=== PATIENT | female | born 1960 | race Caucasian/White ===

== ENCOUNTER 2018-03-11 16:11 | Inpatient (IN) | payer OTHER ==
[2018-03-11 17:34] LABS: Basophils # (Auto) 0.1 K/mm3 (0.0-0.1); Basophils % (Auto) 1.4 % (0.0-1.8); Eosinophils # (Auto) 0.1 K/mm3 (0.0-0.4); Eosinophils % (Auto) 1.7 % (0.0-4.3); Hematocrit 24.8 % (30.3-42.9); Hemoglobin 8.5 gm/dl (10.1-14.3); Lymphocytes # (Auto) 0.9 K/mm3 (1.2-5.4); Lymphocytes % (Auto) 14.8 % (13.4-35.0); Mean Corpuscular HGB Conc 34 % (30-34); Mean Corpuscular Hemoglobin 31 pg (28-32); Mean Corpuscular Volume 90 fl (79-97); Monocytes # (Auto) 0.6 K/mm3 (0.0-0.8); Monocytes % (Auto) 9.1 % (0.0-7.3); Platelet Count 219 K/mm3 (140-440); Red Blood Count 2.75 M/mm3 (3.65-5.03); Red Cell Distribution Width 16.1 % (13.2-15.2)
[2018-03-11 18:01] LABS: Calcium 8.8 mg/dL (8.4-10.2)
--- NOTE | 2018-03-11 18:14 | XRay Report ---
FINAL REPORT PROCEDURE: XR CHEST ROUTINE 2V TECHNIQUE: PA and lateral chest radiographs were obtained. CPT 54041 HISTORY: sob COMPARISON: No prior studies are available for comparison. FINDINGS: The heart is markedly diffusely enlarged. Pulmonary vasculature is mildly distended. Interstitial markings mildly coarsened. This may be chronic. I cannot exclude minimal pulmonary edema. No effusions are identified. There is some patchy alveolar density in the right infrahilar region extending into the right lower lobe suggesting a small area of atelectasis. Subsegmental infiltrate needs clinical exclusion. IMPRESSION: Cardiomegaly with pulmonary venous hypertension changes. Mild prominence interstitial markings may represent chronic minimal fibrosis. I cannot exclude mild pulmonary edema. Small amount of patchy alveolar density right infrahilar region extending into the right lower lobe suggesting atelectasis versus a subsegmental infiltrate. No other abnormalities are seen..
[2018-03-11 18:54] LABS: Chol/HDL Ratio 3.49 %
--- NOTE | 2018-03-11 21:52 | Emergency Department Report ---
ED Shortness of Breath HPI - General Chief Complaint: Dyspnea/Respdistress Stated Complaint: SANTINO, CP Time Seen by Provider: 03/11/18 21:44 Source: patient Mode of arrival: Ambulatory Limitations: No Limitations - History of Present Illness Initial Comments: Patient is 57 years old female history of end-stage renal disease on hemodialysis. Patient is arriving from [facility] today. She stated that she had dialysis on Friday and she is due today. She stated that she's been having shortness of breath since yesterday and she pain that she is having extra fluid in her lung. Blood pressure is 178/112. Patient denied any chest pain, abdominal pain, fever, nausea or vomiting. MD Complaint: shortness of breath -: Gradual Consistency: constant - Related Data Allergies Allergy/AdvReac Type Severity Reaction Status Date / Time No Known Allergies Allergy Unverified 03/11/18 16:33 ED Review of Systems ROS: Stated complaint: SANTINO, CP Other details as noted in HPI Comment: All other systems reviewed and negative Constitutional: denies: chills, fever Respiratory: orthopnea, shortness of breath, SOB with exertion. denies: cough Cardiovascular: denies: chest pain, palpitations Gastrointestinal: denies: abdominal pain, nausea, vomiting, diarrhea, constipation, hematemesis, melena, hematochezia Musculoskeletal: denies: back pain Neurological: denies: headache, weakness, numbness, paresthesias, confusion ED Past Medical Hx - Past Medical History Previous Medical History?: Yes Hx Hypertension: Yes Hx CVA: Yes (weakness in legs) Hx Congestive Heart Failure: Yes Hx GERD: Yes Hx Renal Disease: Yes (HD MWF) Additional medical history: Sciatic nerve damage, Ectopic x 2, Left and right arm AV grafts - Surgical History Past Surgical History?: Yes Additional Surgical History: AV grafts in left arm, Right arm AV grafts - Social History Smoking Status: Former Smoker Substance Use Type: Marijuana ED Physical Exam - General Limitations: No Limitations General appearance: alert, in no apparent distress - Eye Eye exam: Present: normal appearance - ENT ENT exam: Present: normal exam, normal orophraynx, mucous membranes moist - Neck Neck exam: Present: normal inspection, full ROM. Absent: tenderness, meningismus, lymphadenopathy, thyromegaly - Respiratory Respiratory exam: Present: normal lung sounds bilaterally. Absent: respiratory distress, wheezes, rales, rhonchi, decreased breath sounds, prolonged expiratory - Cardiovascular Cardiovascular Exam: Present: regular rate, normal rhythm, normal heart sounds, systolic murmur - GI/Abdominal GI/Abdominal exam: Present: soft, normal bowel sounds. Absent: distended, tenderness, guarding, rebound, rigid, organomegaly, mass, bruit, pulsatile mass - Extremities Exam Extremities exam: Present: normal inspection, full ROM, normal capillary refill , pedal edema. Absent: tenderness, calf tenderness - Back Exam Back exam: Present: normal inspection, full ROM. Absent: tenderness, CVA tenderness (R), CVA tenderness (L), muscle spasm, paraspinal tenderness, vertebral tenderness - Neurological Exam Neurological exam: Present: alert, oriented X3, CN II-XII intact, normal gait - Skin Skin exam: Present: warm, intact, normal color ED Course Vital Signs 03/11/18 03/11/18 03/11/18 16:26 21:30 21:32 Temperature 99.2 F Pulse Rate 80 73 Respiratory 22 17 Rate Blood Pressure 172/100 172/78 O2 Sat by Pulse 95 99 100 Oximetry 03/11/18 03/11/18 03/11/18 21:34 21:36 21:38 Temperature Pulse Rate 78 85 74 Respiratory 20 20 19 Rate Blood Pressure 172/78 172/78 172/78 O2 Sat by Pulse 98 98 98 Oximetry 03/11/18 03/11/18 03/11/18 21:40 21:42 21:44 Temperature Pulse Rate 77 82 81 Respiratory 19 16 17 Rate Blood Pressure 172/78 172/78 172/78 O2 Sat by Pulse 98 99 98 Oximetry 03/11/18 03/11/18 03/11/18 21:46 21:48 21:50 Temperature Pulse Rate 74 80 78 Respiratory 18 20 20 Rate Blood Pressure 172/78 172/78 172/78 O2 Sat by Pulse 99 100 99 Oximetry 03/11/18 03/11/18 03/11/18 21:52 21:54 21:56 Temperature Pulse Rate 77 80 74 Respiratory 16 22 15 Rate Blood Pressure 172/78 172/78 172/78 O2 Sat by Pulse 100 100 99 Oximetry 03/11/18 03/11/18 03/11/18 21:58 22:00 22:06 Temperature Pulse Rate 77 70 Respiratory 18 18 20 Rate Blood Pressure 172/78 183/80 O2 Sat by Pulse 97 97 Oximetry - Reevaluation(s) Reevaluation #1: 03/11/18 22:[address] Cavazos, he agreed to admit the patient to service. ED Medical Decision Making - Lab Data Result diagrams: 03/11/18 17:19 03/11/18 17:19 - EKG Data -: EKG Interpreted by Me EKG shows normal: sinus rhythm - EKG Data Interpretation: no acute changes - Radiology Data Radiology results: report reviewed - Medical Decision Making Discussed with Dr. Melton from nephrology. Advised to admit patient to hospitalist and he will do hemodialysis in the morning Critical care attestation.: If time is entered above; I have spent that time in minutes in the direct care of this critically ill patient, excluding procedure time. ED Disposition Clinical Impression: Volume overload, End stage renal disease on dialysis Disposition: OP ADMIT IP TO THIS HOSP Is pt being admited?: Yes Condition: Stable Referrals: AIDA SAVAGE MD [Primary Care Provider] - 3-5 Days
[2018-03-12] MEDS: APRESOLINE IV PRN ×2 (00:23→04:12)
--- NOTE | 2018-03-12 05:56 | Event Note ---
Date: 03/11/18 03/11/18 See Dictated H/p in reports Volume overload
[2018-03-12] MEDS ORDERED: MORPHINE IV PRN (06:29)
[2018-03-12] MEDS ORDERED: ZOFRAN IV PRN (06:29)
[2018-03-12] MEDS ORDERED: PERCOCET 5/325 PO PRN (06:29)
[2018-03-12] MEDS ORDERED: TYLENOL PO PRN (06:29)
[2018-03-12] MEDS ORDERED: SODIUM CHLORIDE FLUSH SYRINGE 10 ML IV PRN (06:29)
[2018-03-12] MEDS ORDERED: COZAAR PO SCH (06:30)
--- NOTE | 2018-03-12 06:55 | History and Physical Report ---
CHIEF COMPLAINT: Shortness of breath. HISTORY OF PRESENT ILLNESS: A 57-year-old female with end-stage renal disease on hemodialysis, comes in from [facility] today for a court appearance tomorrow. Tomorrow being 03/12/2018. The patient has court appearance at 1:00 p.m. The patient missed dialysis on Friday and Friday, which is today. Hence, she missed 2 dialysis sessions. The patient has been having shortness of breath since yesterday. Also, her blood pressure is elevated in the Emergency Room. The patient goes for dialysis in [facility]. No chest pain. No palpitations. Denies orthopnea. Minimal exercise is exacerbating factor. Rest is relieving factor. PAST MEDICAL HISTORY: Significant for hypertension, cerebrovascular accident with weakness, congestive heart failure, gastroesophageal reflux disease, hemodialysis on Friday, Friday, Friday. Also, sciatic nerve damage. PAST SURGICAL HISTORY: Ectopic x 2, left and right arm AV graft. SOCIAL HISTORY: Former smoker. Marijuana occasionally. FAMILY HISTORY: Significant for hypertension. REVIEW OF SYSTEMS: Significant for shortness of breath on minimal exertion. Denies shortness of breath at rest and orthopnea. Otherwise, review of systems is essentially negative. PHYSICAL EXAMINATION: GENERAL: Middle-aged female, lying in bed comfortably. VITAL SIGNS: Blood pressure is 206/99, temperature is 98, pulse is 78, respirations 20. HEENT: Unremarkable. Pupils equal and reactive. NECK: Supple, no lymphadenopathy, no thyromegaly. LUNGS: Scattered rales present bilaterally. CARDIOVASCULAR: S1, S2 heard. No gallop, no murmur, no rub. Apical impulse in left fifth intercostal space and midclavicular line. ABDOMEN: Soft and benign. No hepatosplenomegaly. No guarding, no rigidity. Hernial orifices are normal. EXTREMITIES: Good pedal pulses. No pedal edema. CENTRAL NERVOUS SYSTEM: Alert and oriented x 4, nonfocal exam. SKIN: Normal. LABORATORY DATA: Significant for troponin of 0.115. BUN and creatinine of 31 and 6.1. Cholesterol is 206. H and H is 8.5 and 24.8. EKG: Normal sinus rhythm, no acute ST-T wave changes. Chest x-ray shows pulmonary vascular congestion. ASSESSMENT AND PLAN: 1. Volume overload. The patient needs dialysis first thing in the morning. Hopefully, the patient will be discharged by 12:00 noon. The patient has a court appearance at 1:00 p.m. on 03/12/2018. 2. Hypertension. Continue her antihypertensive medications. No medications on the chart. The patient initiated on hydralazine and Coreg for the time being, and also IV hydralazine p.r.n. 3. Cerebrovascular accident by history. Physical therapy if necessary. 4. Congestive heart failure secondary to volume overload and end-stage renal disease, increased ultrafiltration. 5. Gastroesophageal reflux disease. Continue Protonix. 6. Deep venous thrombosis prophylaxis. Heparin 5000 subQ q. 12. JOB# [id number] BIMAL/NTS
--- NOTE | 2018-03-12 09:15 | Progress Note ---
Hospitalist Physical - Constitutional Vitals: Temp Pulse Resp BP Pulse Ox 98.0 F 74 20 163/84 99 03/12/18 07:33 03/12/18 07:33 03/12/18 07:33 03/12/18 07:33 03/12/18 07:33 Results - Labs CBC & Chem 7: 03/11/18 17:19 03/12/18 07:00 Labs: Laboratory Last Values WBC 6.1 K/mm3 (4.5-11.0) 03/11/18 17:19 RBC 2.75 M/mm3 (3.65-5.03) L 03/11/18 17:19 Hgb 8.5 gm/dl (10.1-14.3) L 03/11/18 17:19 Hct 24.8 % (30.3-42.9) L 03/11/18 17:19 MCV 90 fl (79-97) 03/11/18 17:19 MCH 31 pg (28-32) 03/11/18 17:19 MCHC 34 % (30-34) 03/11/18 17:19 RDW 16.1 % (13.2-15.2) H 03/11/18 17:19 Plt Count 219 K/mm3 (140-440) 03/11/18 17:19 Lymph % (Auto) 14.8 % (13.4-35.0) 03/11/18 17:19 [place] % (Auto) 9.1 % (0.0-7.3) H 03/11/18 17:19 Eos % (Auto) 1.7 % (0.0-4.3) 03/11/18 17:19 Baso % (Auto) 1.4 % (0.0-1.8) 03/11/18 17:19 Lymph # 0.9 K/mm3 (1.2-5.4) L 03/11/18 17:19 [place] # 0.6 K/mm3 (0.0-0.8) 03/11/18 17:19 Eos # 0.1 K/mm3 (0.0-0.4) 03/11/18 17:19 Baso # 0.1 K/mm3 (0.0-0.1) 03/11/18 17:19 Seg Neutrophils % 73.0 % (40.0-70.0) H 03/11/18 17:19 Seg Neutrophils # 4.5 K/mm3 (1.8-7.7) 03/11/18 17: Sodium 138 mmol/L (137-145) 03/12/18 07:00 Potassium 4.5 mmol/L (3.6-5.0) 03/12/18 07:00 Chloride 95.0 mmol/L (98-107) L 03/12/18 07:00 Carbon Dioxide 25 mmol/L (22-30) 03/12/18 07:00 Anion Gap 23 mmol/L 03/12/18 07:00 BUN 35 mg/dL (7-17) H 03/12/18 07:00 Creatinine 6.7 mg/dL (0.7-1.2) H 03/12/18 07:00 Estimated GFR 6 ml/min 03/12/18 07:00 BUN/Creatinine Ratio 5 % 03/12/18 07:00 Glucose 94 mg/dL (65-100) 03/12/18 07:00 Hemoglobin A1c < 4.2 % (4-6) 03/12/18 07:00 Calcium 9.0 mg/dL (8.4-10.2) 03/12/18 07:00 Troponin T 0.115 ng/mL (0.00-0.029) H* 03/11/18 17: Triglycerides 91 mg/dL (2-149) 03/11/18 17: Cholesterol 206 mg/dL (50-199) H 03/11/18 17:19 LDL Cholesterol Direct 134 mg/dL (50-130) H 03/11/18 17:19 HDL Cholesterol 59 mg/dL (40-59) 03/11/18 17:19 Cholesterol/HDL Ratio 3.49 % 03/11/18:19
[2018-03-12] MEDS ORDERED: NACL 0.9% 100 ML IV PRN (09:38)
--- NOTE | 2018-03-12 09:38 | Consultation ---
History of Present Illness - History of Present Illness Thank you for the consultation patient was evaluated today. Source of information; patient herself and current chart History of presenting illness; Patient is a pleasant 57-year-old -Citizen Of [place] female who's been admitted here with volume overload shortness of breath last dialysis treatment was on Friday and . Patient does not know how long she is going to be here in the area and hence will need ongoing dialysis. She currently does have a fistula in her arm which has been working well has no complaints of any nausea or vomiting but her appetite was poor upon arrival was noted to have a hemoglobin of 8.5 percussion 4.5 bun 31 and creatinine of 6.1 blood pressure was elevated 170-180 systolic She is continues to complain of mild shortness of breath Past medical history significant for End-stage renal disease currently maintenance hemodialysis Anemia and end-stage renal disease Secondary hyperparathyroidism Hypertension Home medication: Reviewed Current allergies: None Social history: Reviewed Family history: Reviewed Review of system positive for shortness of breath inability to dialyze does not have a dialysis clinic any fever or chills access has been working well All other review of system have been negative Labs and x-rays: Were reviewed from the current chart Physical examination General: No acute distress HEENT: Oral mucosa moist no pharyngeal erythema no pallor or icterus no uremic order Neck: Supple no evidence of any thyromegaly trachea midline no JVD Chest: Clear to auscultation no crackles are also wheezes anteriorly Heart: Regular rate and rhythm S1-S2 heard no S3-S4 Abdomen: Soft nontender no renal bruit no CVA tenderness no suprapubic fullness no organomegaly Extremity: Minimal edema dry skin no peripheral cyanosis pulses palpable Neurological: Alert awake follows command grossly nonfocal examination Back: Nontender thoracolumbar spine Musculoskeletal: No joint effusion noted Skin: No petechial rash/noted Assessment and plan End-stage renal disease; patient is in need for renal replacement therapy today she does not have established dialysis clinic, she is visiting from [place] while she is here she will dialyze on Friday schedule, will need an outpatient dialysis clinic to reestablish, unless she chooses to self discharge Anemia in end-stage renal disease: To monitor and follow, will give erythropoietin with hemodialysis current hemoglobin 8.5 Abnormal troponin please do serial follow-up if needed consider cardiology evaluation patient currently does not complain of any chest pain Chest x-ray obtained shows evidence of pulmonary vascular congestion, cardiomegaly as well as small effusion Secondary hyperparathyroidism will check phosphorus and PTH level Last dialysis treatment was on Friday Accelerated hypertension should improve post hemodialysis will follow Volume overload as evident by edema crackles and some JVD Monitor dialysis related labs Nature and severity of renal-related issues were discussed with patient, all questions were answered and simple [place] We'll continue to follow and make recommendations from renal standpoint. If you have any questions please feel free to contact me at [phone] Thank you for the consultation. Medications and Allergies Allergies Allergy/AdvReac Type Severity Reaction Status Date / Time No Known Allergies Allergy Verified 03/12/18 00:09 Home Medications Medication Instructions Recorded Confirmed Last Taken Type Famotidine [Pepcid] 10 mg PO BID tablet 03/12/18 Unknown Rx Labetalol [Normodyne TAB] 200 mg PO BID #60 tablet 03/12/18 Unknown Rx Active Meds: Active Medications Acetaminophen (Tylenol) 650 mg PO Q4H PRN PRN Reason: Pain MILD(1-3)/Fever >100.5/WEBER Carvedilol (Coreg) 6.25 mg PO BID INDIO Famotidine (Pepcid) 10 mg PO BID INDIO Hydralazine HCl (Apresoline) 10 mg IV Q3H PRN PRN Reason: hypertension Last Admin: 03/12/18 04:12 Dose: 10 mg Losartan Potassium (Cozaar) 100 mg PO QDAY INDIO Morphine Sulfate (Morphine) 2 mg IV Q4H PRN PRN Reason: Pain, Moderate (4-6) Ondansetron HCl (Zofran) 4 mg IV Q8H PRN PRN Reason: Nausea And Vomiting Oxycodone/Acetaminophen (Percocet 5/325) 1 tab PO Q6H PRN PRN Reason: Pain, Moderate (4-6) Sodium Chloride (Sodium Chloride Flush Syringe 10 Ml) 10 ml IV BID INDIO Sodium Chloride (Sodium Chloride Flush Syringe 10 Ml) 10 ml IV PRN PRN PRN Reason: LINE FLUSH Exam - Vital Signs Vital signs: Vital Signs Temp Pulse Resp BP Pulse Ox 99.2 F 80 22 172/100 95 03/11/18 16:26 03/11/18 16:26 03/11/18 16:26 03/11/18 16:26 03/11/18 16:26 Results - Lab Results 03/11/18 17:19 03/12/18 07:00 Most recent lab results Calcium 9.0 mg/dL (8.4-10.2) 03/12/18 07:00
[2018-03-12] MEDS ORDERED: SODIUM CHLORIDE FLUSH SYRINGE 10 ML IV SCH (10:00)
[2018-03-12] MEDS ORDERED: PEPCID PO SCH (10:00)
[2018-03-12] MEDS ORDERED: COREG PO SCH (10:00)
[2018-03-12] MEDS ORDERED: NACL 0.9 (PRIMING MACHINE ONLY DIALYSIS) MC ONE (12:08)
[2018-03-12 14:07] LABS: Hepatitis A Antibody IgM Non-Reactive (NonReactive); Hepatitis B Core IgM Non-Reactive (NonReactive); Hepatitis B Surface Antigen Non-Reactive (Negative); Hepatitis C Virus Antibody Non-Reactive (NonReactive)
--- NOTE | 2018-03-12 15:14 | Discharge Summary ---
<MOOKIE BLOOM - Last Filed: 03/13/18 13:37> Providers - Providers Date of Admission: 03/11/18 22:11 Date of discharge: 03/13/18 Attending physician: SEGUN COLEMAN MD 03/11/18 22:04 Consult to Physician [CONS] Stat Comment: Consulting Provider: BRET FOX Physician Instructions: Reason For Exam: end stage renal disease on hemodialysis Primary care physician: AIDA SAVAGE Hospitalization Condition: Stable Hospital course: Patient is a 57-year-old woman with end-stage renal disease on hemodialysis who presented to the emergency room due to increasing shortness of breath after a missed dialysis on Friday. Patient is from [facility] and does not have dialysis center locally. Patient received hemodialysis prior to discharge and clinically improved. She requested discharge back to her home but was being followed by gun fitter who determined that it was unsafe for her to be discharged without outpatient dialysis center in place, patient left AGAINST MEDICAL ADVICE. Patient will continue her outpatient medications of labetalol and minoxidil. A refill of labetalol was requested and sent over to patient's pharmacy. Discharge diagnoses End-stage renal disease on hemodialysis Hypertension Acute respiratory failure secondary to fluid overload Congestive heart failure secondary to volume overload GERD History of CVA Anemia of chronic disease Disposition: DC-07 LEFT AGAINST MED ADVICE Time spent for discharge: 32 minutes Core Measure Documentation - Palliative Care Palliative Care/ Comfort Measures: Not Applicable - Core Measures Any of the following diagnoses?: none Exam - Constitutional Vitals: Temp Pulse Resp BP Pulse Ox 98.0 F 78 18 163/85 99 03/12/18 13:45 03/12/18 13:45 03/12/18 13:45 03/12/18 13:45 03/12/18 07:33 General appearance: Present: no acute distress, well-nourished - EENT Eyes: Present: PERRL ENT: hearing intact, clear oral mucosa - Neck Neck: Present: supple, normal ROM - Respiratory Respiratory effort: normal Respiratory: bilateral: diminished - Cardiovascular Heart Sounds: Present: S1 & S2. Absent: rub, click - Extremities Extremities: pulses symmetrical, No edema Peripheral Pulses: within normal limits - Abdominal General gastrointestinal: Present: soft, non-tender, non-distended, normal bowel sounds - Integumentary Integumentary: Present: clear, warm, dry - Musculoskeletal Musculoskeletal: gait normal, strength equal bilaterally - Psychiatric Psychiatric: appropriate mood/affect, intact judgment & insight - Neurologic Neurologic: CNII-XII intact, moves all extremities Plan Activity: no restrictions Diet: low fat, low cholesterol, low salt, renal Follow up with: AIDA SAVAGE MD [Primary Care Provider] - 3-5 Days Prescriptions: Labetalol [Normodyne TAB] 200 mg PO BID #60 tablet <SEGUN COLEMAN - Last Filed: 03/13/18 23:37> Providers - Providers Date of Admission: 03/11/18 22:11 Attending physician: SEGUN COLEMAN MD 03/11/18 22:04 Consult to Physician [CONS] Stat Comment: Consulting Provider: BRET FOX Physician Instructions: Reason For Exam: end stage renal disease on hemodialysis Primary care physician: AIDA SAVAGE Hospitalization Hospital course: I saw and evaluated the patient. I agree with the findings and the plan of care as documented in the PA's~note, with the following corrections and additions. Exam - Constitutional Vitals: Temp Pulse Resp BP Pulse Ox 98.0 F 78 20 143/82 99 03/12/18 15:06 03/12/18 13:45 03/12/18 15:06 03/12/18 15:06 03/12/18 07:33
[2018-03-12 15:34] VITALS: BP 143/82
--- NOTE | 2018-03-12 16:08 | Progress Note ---
<MOOKIE BLOOM - Last Filed: 03/13/18 13:28> Assessment and Plan Assessment and plan: Patient is a 57 year old woman with ESRD on HD who presented to ED with increasing shortness of breath after missed dialysis. End-stage renal disease on hemodialysis Nephrology consultation, hemodialysis per nephrology team Acute respiratory failure secondary to fluid overload Improved after hemodialysis Hypertension continue outpatient antihypertensive Acute congestive heart failure secondary to volume overload HD indicated GERD Continue Protonix Anemia of chronic disease We'll monitor, Procrit with hemodialysis as needed, will transfuse for hemoglobin less than 7 History of CVA DVT prophylaxis SCDs History Interval history: Patient seen and examined. The patient reports improved shortness of breath after hemodialysis. No new complaints at this time. Labs and nursing notes reviewed. Hospitalist Physical - Constitutional Vitals: Temp Pulse Resp BP Pulse Ox 98.0 F 78 20 143/82 99 03/12/18 15:06 03/12/18 13:45 03/12/18 15:06 03/12/18 15:06 03/12/18 07:33 General appearance: Present: no acute distress, well-nourished - EENT Eyes: Present: PERRL, EOM intact ENT: hearing intact, clear oral mucosa - Neck Neck: Present: supple, normal ROM - Respiratory Respiratory effort: normal Respiratory: bilateral: diminished - Cardiovascular Rhythm: regular Heart Sounds: Present: S1 & S2 - Extremities Extremities: no ischemia, pulses intact, No edema, normal temperature - Abdominal General gastrointestinal: soft, non-tender, non-distended - Integumentary Integumentary: Present: clear, warm, dry - Psychiatric Psychiatric: appropriate mood/affect, intact judgment & insight, cooperative - Neurologic Neurologic: CNII-XII intact, moves all extremities Results - Labs CBC & Chem 7: 03/11/18 17:19 03/12/18 07:00 Labs: Laboratory Last Values WBC 6.1 K/mm3 (4.5-11.0) 03/11/18 17: RBC 2.75 M/mm3 (3.65-5.03) L 03/11/18 17:19 Hgb 8.5 gm/dl (10.1-14.3) L 03/11/18 17: Hct 24.8 % (30.3-42.9) L 04/18/18 17:19 MCV 90 fl (79-97) 03/11/18 17:19 MCH 31 pg (28-32) 03/11/18 17:19 MCHC 34 % (30-34) 03/11/18 17:19 RDW 16.1 % (13.2-15.2) H 03/11/18 17:19 Plt Count 219 K/mm3 (140-440) 03/11/18 17:19 Lymph % (Auto) 14.8 % (13.4-35.0) 03/11/18 17:19 [place] % (Auto) 9.1 % (0.0-7.3) H 03/11/18 17:19 Eos % (Auto) 1.7 % (0.0-4.3) 03/11/18 17:19 Baso % (Auto) 1.4 % (0.0-1.8) 03/11/18 17:19 Lymph # 0.9 K/mm3 (1.2-5.4) L 03/11/18 17:19 [place] # 0.6 K/mm3 (0.0-0.8) 03/11/18 17:19 Eos # 0.1 K/mm3 (0.0-0.4) 03/11/18 17:19 Baso # 0.1 K/mm3 (0.0-0.1) 03/11/18 17:19 Seg Neutrophils % 73.0 % (40.0-70.0) H 03/11/18 17:19 Seg Neutrophils # 4.5 K/mm3 (1.8-7.7) 03/11/18 17:19 Sodium 138 mmol/L (137-145) 03/12/18 07:00 Potassium 4.5 mmol/L (3.6-5.0) 03/12/18 07:00 Chloride 95.0 mmol/L (98-107) L 03/12/18 07:00 Carbon Dioxide 25 mmol/L (22-30) 03/12/18 07:00 Anion Gap 23 mmol/L 03/12/18 07:00 BUN 35 mg/dL (7-17) H 03/12/18 07:00 Creatinine 6.7 mg/dL (0.7-1.2) H 03/12/18 07:00 Estimated GFR 6 ml/min 03/12/18 07:00 BUN/Creatinine Ratio 5 % 03/12/18 07:00 Glucose 94 mg/dL (65-100) 03/12/18 07:00 Hemoglobin A1c < 4.2 % (4-6) 03/12/18 07:00 Calcium 9.0 mg/dL (8.4-10.2) 03/12/18 07:00 Troponin T 0.115 ng/mL (0.00-0.029) H* 03/11/18 17:19 Triglycerides 91 mg/dL (2-149) 03/11/18 17:19 Cholesterol 206 mg/dL (50-199) H 03/11/18 17:19 LDL Cholesterol Direct 134 mg/dL (50-130) H 03/11/18 17:19 HDL Cholesterol 59 mg/dL (40-59) 03/11/18 17: Cholesterol/HDL Ratio 3.49 % 03/11/18 17:19 Hepatitis A IgM Ab Non-reactive (NonReactive) 03/12/18 13:15 Hep Bs Antigen Non-reactive (Negative) 03/12/18 13:15 Hep B Core IgM Ab Non-reactive (NonReactive) 03/12/18 13:15 Hepatitis C Antibody Non-reactive (NonReactive) 03/12/18 13:15 <SEGUN COLEMAN - Last Filed: 03/13/18 23:36> Assessment and Plan Assessment and plan: I saw and evaluated the patient. I agree with the findings and the plan of care as documented in the PA's~note, with the following corrections and additions. Hospitalist Physical - Constitutional Vitals: Temp Pulse Resp BP Pulse Ox 98.0 F 78 20 143/82 99 03/12/18 15:06 03/12/18 13:45 03/12/18 15:06 03/12/18 15:06 03/12/18 07:33 Results - Labs CBC & Chem 7: 03/11/18 17:19 03/12/18 07:00 Labs: Laboratory Last Values WBC 6.1 K/mm3 (4.5-11.0) 03/11/18 17: RBC 2.75 M/mm3 (3.65-5.03) L 03/11/18 17:19 Hgb 8.5 gm/dl (10.1-14.3) L 03/11/18 17:19 Hct 24.8 % (30.3-42.9) L 03/11/18 17:19 MCV 90 fl (79-97) 03/11/18 17:19 MCH 31 pg (28-32) 18 17:19 MCHC 34 % (30-34) 03/11/18 17:19 RDW 16.1 % (13.2-15.2) H 03/11/18 17:19 Plt Count 219 K/mm3 (140-440) 03/11/18 17:19 Lymph % (Auto) 14.8 % (13.4-35.0) 03/11/18 17:19 [place] % (Auto) 9.1 % (0.0-7.3) H 03/11/18 17:19 Eos % (Auto) 1.7 % (0.0-4.3) 03/11/18 17:19 Baso % (Auto) 1.4 % (0.0-1.8) 03/11/18 17:19 Lymph # 0.9 K/mm3 (1.2-5.4) L 03/11/18 17:19 [place] # 0.6 K/mm3 (0.0-0.8) 03/11/18 17:19 Eos # 0.1 K/mm3 (0.0-0.4) 03/11/18 17:19 Baso # 0.1 K/mm3 (0.0-0.1) 03/11/18 17:19 Seg Neutrophils % 73.0 % (40.0-70.0) H 03/11/18 17:19 Seg Neutrophils # 4.5 K/mm3 (1.8-7.7) 03/11/18 17:19 Sodium 138 mmol/L (137-145) 03/12/18 07:00 Potassium 4.5 mmol/L (3.6-5.0) 03/12/18 07:00 Chloride 95.0 mmol/L (98-107) L 03/12/18 07:00 Carbon Dioxide 25 mmol/L (22-30) 03/12/18 07:00 Anion Gap 23 mmol/L 03/12/18 07:00 BUN 35 mg/dL (7-17) H 03/12/18 07:00 Creatinine 6.7 mg/dL (0.7-1.2) H 03/12/18 07:00 Estimated GFR 6 ml/min 03/12/18 07:00 BUN/Creatinine Ratio 5 % 03/12/18 07:00 Glucose 94 mg/dL (65-100) 03/12/18 07:00 Hemoglobin A1c < 4.2 % (4-6) 03/12/18 07:00 Calcium 9.0 mg/dL (8.4-10.2) 03/12/18 07:00 Troponin T 0.115 ng/mL (0.00-0.029) H* 03/11/18 17:19 Triglycerides 91 mg/dL (2-149) 03/11/18 17:19 Cholesterol 206 mg/dL (50-199) H 03/11/18 17:19 LDL Cholesterol Direct 134 mg/dL (50-130) H 03/11/18 17:19 HDL Cholesterol 59 mg/dL (40-59) 03/11/18 17:19 Cholesterol/HDL Ratio 3.49 % 03/11/18 17:19 Hepatitis A IgM Ab Non-reactive (NonReactive) 03/12/18 13:15 Hep Bs Antigen Non-reactive (Negative) 03/12/18 13:15 Hep B Core IgM Ab Non-reactive (NonReactive) 03/12/18 13:15 Hepatitis C Antibody Non-reactive (NonReactive) 03/12/18 13:15
--- NOTE | 2018-03-12 19:05 | Event Note ---
Date: 03/12/18 Patient seen and examined in no acute distress postdialysis. The patient denies any chest pain nausea vomiting or diarrhea. Elevated troponin likely secondary to chronic kidney disease and missed dialysis. Patient is [facility] and was supposed to go back post court date today. Does not have any place for dialysis and country. We'll continue to stabilize prior to discharge. See PAs note for full documentation. ANEMIA of chronic kidney disease Type 2 HI secondary ESRD ESRD Acute Respiratory failure secondary to fluid overload/Missed dialysis
== END 2018-03-12 19:05 | disposition left against medical advice (07) | DRG 280 ==
LOC: ED 16:11 → 3A 22:11
PROVIDERS: ADMIT Internal Medicine; ATTEND Internal Medicine
PROC: 5A1D70Z Performance of Urinary Filtration, Intermittent, Less than 6 Hours Per Day (ICD-10-PCS; principal; 2018-03-12)
DX: I21.A1 Myocardial infarction type 2 (principal); N18.6 End stage renal disease; J96.00 Acute respiratory failure, unspecified whether with hypoxia or hypercapnia; I13.2 Hypertensive heart and chronic kidney disease with heart failure and with stage 5 chronic kidney disease, or end stage renal disease; N25.81 Secondary hyperparathyroidism of renal origin; E87.70 Fluid overload, unspecified; I50.9 Heart failure, unspecified; K21.9 Gastro-esophageal reflux disease without esophagitis; F12.90 Cannabis use, unspecified, uncomplicated; D63.1 Anemia in chronic kidney disease; Z86.73 Personal history of transient ischemic attack (TIA), and cerebral infarction without residual deficits; Z82.49 Family history of ischemic heart disease and other diseases of the circulatory system
CPT/HCPCS: 36415; 71046; 80048; 80061; 80074; 83036; 84484; 85025; 93005; 93010; J0360; J7030

== ENCOUNTER 2018-03-15 16:35 | Inpatient (IN) | payer OTHER ==
[2018-03-15 17:42] LABS: Calcium 7.7 mg/dL (8.4-10.2)
[2018-03-15 17:47] LABS: Basophils # (Auto) 0.1 K/mm3 (0.0-0.1); Basophils % (Auto) 1.3 % (0.0-1.8); Eosinophils # (Auto) 0.2 K/mm3 (0.0-0.4); Hematocrit 24.3 % (30.3-42.9); Hemoglobin 8.2 gm/dl (10.1-14.3); Lymphocytes # (Auto) 0.9 K/mm3 (1.2-5.4); Lymphocytes % (Auto) 10.7 % (13.4-35.0); Mean Corpuscular HGB Conc 34 % (30-34); Mean Corpuscular Hemoglobin 30 pg (28-32); Mean Corpuscular Volume 89 fl (79-97); Monocytes # (Auto) 0.7 K/mm3 (0.0-0.8); Monocytes % (Auto) 8.2 % (0.0-7.3); Platelet Count 184 K/mm3 (140-440); Red Blood Count 2.74 M/mm3 (3.65-5.03); Red Cell Distribution Width 15.8 % (13.2-15.2)
--- NOTE | 2018-03-15 22:55 | Emergency Department Report ---
HPI - General Chief Complaint: Dyspnea/Respdistress Time Seen by Provider: 03/15/18 22:14 - HPI HPI: Room 26 The patient is a 57-year-old female presented with a chief complaint of "I need dialysis." The patient states she is short of breath for the past 2 days. The patient was recently admitted for shortness of breath secondary to end-stage renal disease. 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 According to notes from previous admission the patient left AMA without having outpatient hemodialysis established. Patient now returns with orthopnea and shortness of breath. Patient denies chest pain. Patient was last dialyzed 3 days ago Location: Lungs Duration: 2 days Quality: Shortness of breath Severity: [See above] Modifying factors: [see above] Context: [see above] Mode of transportation: [not driving] ED Past Medical Hx - Past Medical History Hx Hypertension: Yes Hx CVA: Yes (weakness in legs) Hx Congestive Heart Failure: Yes Hx GERD: Yes Hx Renal Disease: Yes (HD MWF) Additional medical history: Sciatic nerve damage, Ectopic x 2, Left and right arm AV grafts - Surgical History Additional Surgical History: AV grafts in left arm, Right arm AV grafts - Family History Family history: no significant - Social History Smoking Status: Never Smoker Substance Use Type: None - Medications Home Medications: Home Medications Medication Instructions Recorded Confirmed Last Taken Type Famotidine [Pepcid] 10 mg PO BID tablet 03/12/18 03/15/18 Unknown Rx Labetalol [Normodyne TAB] 200 mg PO BID #60 tablet 03/12/18 03/15/18 Unknown Rx Minoxidil [Loniten] 10 mg PO BID 03/15/18 03/15/18 Unknown History ED Review of Systems ROS: Stated complaint: DIALYSIS/SANTINO Other details as noted in HPI Respiratory: cough, shortness of breath Cardiovascular: orthopnea. denies: chest pain Physical Exam - Physical Exam Vital Signs: Vital Signs 03/15/18 03/15/18 03/15/18 16:55 20:52 21:00 Temperature 98.6 F Pulse Rate 76 78 79 Respiratory 18 22 19 Rate Blood Pressure 183/100 227/110 O2 Sat by Pulse 98 98 Oximetry 03/15/18 03/15/18 03/15/18 21:15 21:30 21:45 Temperature Pulse Rate 75 79 79 Respiratory 16 13 12 Rate Blood Pressure 221/106 214/114 224/123 O2 Sat by Pulse 98 98 98 Oximetry 03/15/18 03/15/18 22:00 22:15 Temperature Pulse Rate 74 71 Respiratory 12 15 Rate Blood Pressure 223/126 232/127 O2 Sat by Pulse 98 100 Oximetry Physical Exam: GENERAL: The patient is well-developed well-nourished female sitting on stretcher not appearing to be in acute distress. [] HEENT: Normocephalic. Atraumatic. Extraocular motions are intact. Patient has moist mucous membranes. NECK: Supple. Trachea midline CHEST/LUNGS: Clear to auscultation. There is no respiratory distress noted. HEART/CARDIOVASCULAR: Regular. There is no tachycardia. There is no gallop rub or murmur. ABDOMEN: Abdomen is soft, nontender. Patient has normal bowel sounds. There is no abdominal distention. SKIN: There is no rash. There is no edema. There is no diaphoresis. NEURO: The patient is awake, alert, and oriented. The patient is cooperative. The patient has normal speech MUSCULOSKELETAL: There is no evidence of acute injury. ED Course Vital Signs 03/15/18 03/15/18 03/15/18 16:55 20:52 21:00 Temperature 98.6 F Pulse Rate 76 78 79 Respiratory 18 22 19 Rate Blood Pressure 183/100 227/110 O2 Sat by Pulse 98 98 Oximetry 03/15/18 03/15/18 03/15/18 21:15 21:30 21:45 Temperature Pulse Rate 75 79 79 Respiratory 16 13 12 Rate Blood Pressure 221/106 214/114 224/123 O2 Sat by Pulse 98 98 98 Oximetry 03/15/18 03/15/18 22:00 22:15 Temperature Pulse Rate 74 71 Respiratory 12 15 Rate Blood Pressure 223/126 232/127 O2 Sat by Pulse 98 100 Oximetry ED Medical Decision Making - Lab Data Result diagrams: 03/15/18 17:36 03/15/18 17:10 Laboratory Tests 03/15/18 03/15/18 03/15/18 17:10 17:36 20:22 WBC 8.0 RBC 2.74 L Hgb 8.2 L Hct 24.3 L MCV 89 MCH 30 MCHC 34 RDW 15.8 H Plt Count 184 Lymph % (Auto) 10.7 L [place] % (Auto) 8.2 H Eos % (Auto) 2.0 Baso % (Auto) 1.3 Lymph # 0.9 L [place] # 0.7 Eos # 0.2 Baso # 0.1 Seg Neutrophils % 77.8 H Seg Neutrophils # 6.2 Sodium 139 Potassium 5.3 H Chloride 96.6 L Carbon Dioxide 22 Anion Gap 26 BUN 59 H Creatinine 9.0 H Estimated GFR 5 BUN/Creatinine Ratio 7 Glucose 91 Calcium 7.7 L Troponin T 0.135 H* 0.147 H* - EKG Data -: EKG Interpreted by Me EKG shows normal: sinus rhythm Rate: normal - EKG Data When compared to previous EKG there are: no significant change Interpretation: unchanged when compared t (03/11/2018) - Radiology Data Radiology results: image reviewed (chest x-ray) interpreted by me: Chest [id number]. No pneumothorax - Differential Diagnosis volume overload, CHF exacerbation Critical care attestation.: If time is entered above; I have spent that time in minutes in the direct care of this critically ill patient, excluding procedure time. ED Disposition Clinical Impression: End stage renal disease on dialysis, Volume overload, Shortness of breath Disposition: DC-09 OP ADMIT IP TO THIS HOSP Is pt being admited?: Yes Does the pt Need Aspirin: Yes Condition: Fair Referrals: AIDA SAVAGE MD [Primary Care Provider] - 3-5 Days Time of Disposition: 23:05 (hospitalist notified (Dr. Jamee Jacques))
[2018-03-15] MEDS ORDERED: KIONEX PO ONE (23:05)
[2018-03-15] MEDS ORDERED: ASPIRIN PO ONE (23:06)
[2018-03-15] MEDS ORDERED: ATIVAN IV PRN (23:06)
[2018-03-15] MEDS ORDERED: TYLENOL PO PRN (23:32)
[2018-03-15] MEDS ORDERED: APRESOLINE IV ONE (23:32)
[2018-03-15] MEDS ORDERED: APRESOLINE IV PRN (23:32)
[2018-03-15] MEDS ORDERED: PERCOCET 5/325 PO PRN (23:32)
[2018-03-15] MEDS ORDERED: SODIUM CHLORIDE FLUSH SYRINGE 10 ML IV PRN (23:32)
[2018-03-15] MEDS ORDERED: ZOFRAN IV PRN (23:32)
--- NOTE | 2018-03-15 23:32 | History and Physical Report ---
History of Present Illness Date of examination: 03/15/18 History of present illness: 57-year-old woman with a history of and states end-stage renal disease on dialysis Friday, Friday, Friday, CHF, hypertension comes emergency room because she developed shortness of breath, PND. The patient was seen here a few days ago for similar complaint and she was given dialysis, however she signed out AGAINST MEDICAL ADVICE because she had a court date Review of systems Constitutional: no weight loss, chills Ears, eyes, nose, mouth and throat: no nasal congestion, no nasal discharge, no sinus pressure, no vision change, no red eye. Neck: No neck pain or rigidity. Cardiovascular: no chest pain, palpitations Respiratory: No cough Gastrointestinal: no abdominal pain, hematochezia Genitourinary : no dysuria, frequency , no hematuria Musculoskeletal: no joint swelling or muscle ache Integumentary: no rash, no pruritis Neurological: no parathesias, no numbness, no focal weakness Endocrine: no cold or heat intolerance, no polyuria or polydipsia Hematologic/Lymphatic: no easy bruising, no easy bleeding, no gland swelling Allergic/Immunologic: no urticaria, no angioedema. PAST MEDICAL HISTORY: End-stage renal disease, CHF, hypertension PAST SURGICAL HISTORY: AV fistula SOCIAL HISTORY: Denies alcohol, tobacco, drugs FAMILY HISTORY: Hypertension Medications and Allergies Allergies Allergy/AdvReac Type Severity Reaction Status Date / Time pregabalin [From Lyrica] Allergy Unknown Verified 03/15/18 22:25 Home Medications Medication Instructions Recorded Confirmed Last Taken Type Labetalol [Normodyne TAB] 200 mg PO BID #60 tablet 03/12/18 03/15/18 Unknown Rx Minoxidil [Loniten] 10 mg PO BID 03/15/18 03/15/18 Unknown History NIFEdipine [Procardia] 1 tab PO DAILY 03/16/18 03/16/18 Unknown History Exam - Physical Exam Narrative exam: Gen. appearance: Patient lying in bed, no apparent distress HEENT: Normocephalic, atraumatic, pupils equally round and reactive to light, extraocular movement intact, and no sclericterus,. No JVD or thyromegaly or nodule,neck supple, no carotid bruit ,mucous membranes moist, no exudate or erythema Heart: S1, S2, regular rate and rhythm Lungs: Crackles bilaterally, breathing comfortable Abdomen: Positive bowel sounds, nontender, nondistended, no organomegaly Extremity: No edema, cyanosis, clubbing Skin: No rash, nodules, warm, dry Neuro: Oriented 3, cranial nerves II-12 intact, speech is fluent, motor and sensory intact - Constitutional Vitals: Temp Pulse Resp BP Pulse Ox 98.6 F 74 21 232/127 100 03/15/18 16:55 03/15/18 22:45 03/15/18 22:45 03/15/18 22:45 03/15/18 22:45 Results - Labs CBC & Chem 7: 03/16/18 03:21 03/16/18 03:21 Labs: Abnormal lab results 03/15/18 03/15/18 03/15/18 Range/Units 17:10 17:36 20:22 RBC 2.74 L (3.65-5.03) M/mm3 Hgb 8.2 L (10.1-14.3) gm/dl Hct 24.3 L (30.3-42.9) % RDW 15.8 H (13.2-15.2) % Lymph % (Auto) 10.7 L (13.4-35.0) % [place] % (Auto) 8.2 H (0.0-7.3) % Lymph # 0.9 L (1.2-5.4) K/mm3 Seg Neutrophils % 77.8 H (40.0-70.0) % Potassium 5.3 H (3.6-5.0) mmol/L Chloride 96.6 L (98-107) mmol/L BUN 59 H (7-17) mg/dL Creatinine 9.0 H (0.7-1.2) mg/dL Calcium 7.7 L (8.4-10.2) mg/dL Troponin T 0.135 H* 0.147 H* (0.00-0.029) ng/mL - Imaging and Cardiology EKG: image reviewed Chest x-ray: image reviewed Assessment and Plan Assessment Volume overload Hypertension malignant Pneumonia, community-acquired End-stage renal disease needing dialysis Plan Admit to medicine Consult renal for dialysis Start IV or drowsy. Blood pressure control, first dose now Start IV Levaquin, follow blood cultures Check cardiac enzymes, echo, abnormal cardiac enzymes DVT prophylaxis Addendum The pressure on control with IV Levaquin Start Cardene drip, and great critical care, consult critical care
--- NOTE | 2018-03-16 00:07 | XRay Report ---
FINAL REPORT EXAM: XR CHEST 1V AP HISTORY: Shortness of breath TECHNIQUE: Single AP portable radiograph of the chest was obtained. PRIORS: Prior radiographs 03/11/2018. FINDINGS: Marked diffuse enlargement of the cardiac silhouette. Mild prominence of the central pulmonary vascularity, interstitial markings. Right cardio phrenic angle patchy opacities. No acute osseous abnormality. Atherosclerotic vascular calcifications within the thoracic aorta. Left upper extremity surgical clips. IMPRESSION: Overall similar appearance of the marked enlargement of the cardiac silhouette with pulmonary vascular congestion and interstitial prominence. Findings suggestive of pulmonary edema in the appropriate clinical setting. There is no large pleural effusion. Mild patchy right cardiophrenic angle opacities, differential includes atelectasis, edema or infiltrate.
[2018-03-16] MEDS ORDERED: CARDENE 50 MG in NACL 0.9% 250ML 230 ML IV SCH (02:00)
[2018-03-16 03:57] LABS: Basophils # (Auto) 0.1 K/mm3 (0.0-0.1); Basophils % (Auto) 0.9 % (0.0-1.8); Eosinophils # (Auto) 0.1 K/mm3 (0.0-0.4); Eosinophils % (Auto) 1.7 % (0.0-4.3); Hematocrit 23.2 % (30.3-42.9); Hemoglobin 7.9 gm/dl (10.1-14.3); Lymphocytes # (Auto) 1.1 K/mm3 (1.2-5.4); Lymphocytes % (Auto) 13.3 % (13.4-35.0); Mean Corpuscular HGB Conc 34 % (30-34); Mean Corpuscular Hemoglobin 30 pg (28-32); Mean Corpuscular Volume 88 fl (79-97); Monocytes # (Auto) 0.6 K/mm3 (0.0-0.8); Monocytes % (Auto) 7.2 % (0.0-7.3); Platelet Count 172 K/mm3 (140-440); Red Blood Count 2.64 M/mm3 (3.65-5.03); Red Cell Distribution Width 16.1 % (13.2-15.2)
[2018-03-16 04:07] LABS: Calcium 7.3 mg/dL (8.4-10.2)
[2018-03-16] MEDS ORDERED: LEVAQUIN 250MG/50ML 250 MG/50 ML BAG IV SCH (05:43)
[2018-03-16 06:36] LABS: Creatine Kinase MB 3.6 ng/mL (0.0-4.0)
--- NOTE | 2018-03-16 09:40 | Consultation ---
History of Present Illness - Reason for Consult Consult date: 03/16/18 end stage renal disease Requesting physician: POONAM JUAREZ - History of Present Illness 57-year-old woman with a history of and states end-stage renal disease on dialysis Friday, Friday, Friday, CHF, hypertension comes emergency room because she developed shortness of breath, PND. The patient was seen here a few days ago for similar complaint and she was given dialysis, however she signed out AGAINST MEDICAL ADVICE because she had a court date Review of systems Constitutional: no weight loss, chills Ears, eyes, nose, mouth and throat: no nasal congestion, no nasal discharge, no sinus pressure, no vision change, no red eye. Neck: No neck pain or rigidity. Cardiovascular: no chest pain, palpitations Respiratory: No cough Gastrointestinal: no abdominal pain, hematochezia Genitourinary : no dysuria, frequency , no hematuria Musculoskeletal: no joint swelling or muscle ache Integumentary: no rash, no pruritis Neurological: no parathesias, no numbness, no focal weakness Endocrine: no cold or heat intolerance, no polyuria or polydipsia Hematologic/Lymphatic: no easy bruising, no easy bleeding, no gland swelling Allergic/Immunologic: no urticaria, no angioedema. PAST MEDICAL HISTORY: End-stage renal disease, CHF, hypertension PAST SURGICAL HISTORY: AV fistula SOCIAL HISTORY: Denies alcohol, tobacco, drugs FAMILY HISTORY: Hypertension Medications and Allergies Allergies Allergy/AdvReac Type Severity Reaction Status Date / Time pregabalin [From Lyrica] Allergy Unknown Verified 03/15/18 22:25 Home Medications Medication Instructions Recorded Confirmed Last Taken Type Labetalol [Normodyne TAB] 200 mg PO BID #60 tablet 03/12/18 03/15/18 Unknown Rx Minoxidil [Loniten] 10 mg PO BID 03/15/18 03/15/18 Unknown History NIFEdipine [Procardia] 1 tab PO DAILY 03/16/18 03/16/18 Unknown History Active Meds: Active Medications Acetaminophen (Tylenol) 650 mg PO Q4H PRN PRN Reason: Pain MILD(1-3)/Fever >100.5/WEBER Enoxaparin Sodium (Lovenox) 30 mg SUB-Q QDAY INDIO Hydralazine HCl (Apresoline) 5 mg IV Q6H PRN PRN Reason: Hypertension Nicardipine HCl 50 mg/ Sodium (Chloride) 250 mls @ 25 mls/hr IV TITR INDIO; Protocol Last Admin: 03/16/18 02:13 Dose: 5 mg/hr, 25 mls/hr Levofloxacin/Dextrose (Levaquin 500mg/100ml) 500 mg in 100 mls @ 100 mls/hr IV Q48H INDIO Ondansetron HCl (Zofran) 4 mg IV Q8H PRN PRN Reason: Nausea And Vomiting Oxycodone/Acetaminophen (Percocet 5/325) 1 tab PO Q6H PRN PRN Reason: Pain, Moderate (4-6) Sodium Chloride (Sodium Chloride Flush Syringe 10 Ml) 10 ml IV BID INDIO Sodium Chloride (Sodium Chloride Flush Syringe 10 Ml) 10 ml IV PRN PRN PRN Reason: LINE FLUSH Exam - Vital Signs Vital signs: Vital Signs Temp Pulse Resp BP Pulse Ox 98.6 F 76 18 183/100 98 03/15/18 16:55 03/15/18 16:55 03/15/18 16:55 03/15/18 16:55 03/15/18 16:55 - Physical Exam Narrative exam: Gen. appearance: Patient lying in bed, no apparent distress HEENT: Normocephalic, atraumatic, pupils equally round and reactive to light, extraocular movement intact, and no sclericterus,. No JVD or thyromegaly or nodule,neck supple, no carotid bruit ,mucous membranes moist, no exudate or erythema Heart: S1, S2, regular rate and rhythm Lungs: Crackles bilaterally, breathing comfortable Abdomen: Positive bowel sounds, nontender, nondistended, no organomegaly Extremity: No edema, cyanosis, clubbing Skin: No rash, nodules, warm, dry Neuro: Oriented 3, cranial nerves II-12 intact, speech is fluent, motor and sensory intact Results - Lab Results 03/16/18 03:21 03/16/18 03:21 Most recent lab results Calcium 7.3 mg/dL (8.4-10.2) L 03/16/18 03:21 Assessment and Plan Assessment Volume overload Hypertension malignant Pneumonia, community-acquired End-stage renal disease needing dialysis Plan hd today and prn uf as tolerated bp control renal diet daily lytes strict i/os
[2018-03-16] MEDS ORDERED: NACL 0.9% 100 ML IV PRN (09:42)
[2018-03-16] MEDS ORDERED: LEVAQUIN 500MG/100ML 500 MG/100 ML BAG IV SCH (10:00)
[2018-03-16] MEDS: SODIUM CHLORIDE FLUSH SYRINGE 10 ML IV SCH ×2 (10:40→22:09)
[2018-03-16] MEDS: LOVENOX SUB-Q SCH (10:40)
[2018-03-16] MEDS ORDERED: LONITEN PO SCH (11:00)
--- NOTE | 2018-03-16 12:58 | Consultation ---
History of Present Illness Consult date: 03/16/18 Requesting physician: POONAM JUAREZ Reason for consult: other (Acute Hypoxemic Respiratory Failure; Hypertensive Emergency) History of present illness: PULMONARY/CCM CONSULT NOTE (full dictation # [id number]) Please see dictated notes for full details Medications and Allergies Allergies Allergy/AdvReac Type Severity Reaction Status Date / Time pregabalin [From Lyrica] Allergy Unknown Verified 03/15/18 22:25 Home Medications Medication Instructions Recorded Confirmed Last Taken Type Labetalol [Normodyne TAB] 200 mg PO BID #60 tablet 03/12/18 03/15/18 Unknown Rx Minoxidil [Loniten] 10 mg PO BID 03/15/18 03/15/18 Unknown History NIFEdipine [Procardia] 1 tab PO DAILY 03/16/18 03/16/18 Unknown History Active Meds: Active Medications Acetaminophen (Tylenol) 650 mg PO Q4H PRN PRN Reason: Pain MILD(1-3)/Fever >100.5/WEBER Enoxaparin Sodium (Lovenox) 30 mg SUB-Q QDAY INDIO Last Admin: 03/16/18 10:40 Dose: 30 mg Famotidine (Pepcid) 20 mg PO DAILY INDIO Hydralazine HCl (Apresoline) 5 mg IV Q6H PRN PRN Reason: Hypertension Nicardipine HCl 50 mg/ Sodium (Chloride) 250 mls @ 25 mls/hr IV TITR INDIO; Protocol Last Titration: 03/16/18 10:34 Dose: 2.5 mg/hr, 12.5 mls/hr Levofloxacin/Dextrose (Levaquin 500mg/100ml) 500 mg in 100 mls @ 100 mls/hr IV Q48H INDIO Sodium Chloride (Nacl 0.9%) 100 mls @ 999 mls/hr IV ALIA PRN PRN Reason: Hypotension Labetalol HCl (Normodyne) 200 mg PO BID INDIO Minoxidil (Loniten) 10 mg PO BID INDIO Nifedipine (Procardia Xl) 60 mg PO Q12HR INDIO Ondansetron HCl (Zofran) 4 mg IV Q8H PRN PRN Reason: Nausea And Vomiting Oxycodone/Acetaminophen (Percocet 5/325) 1 tab PO Q6H PRN PRN Reason: Pain, Moderate (4-6) Sodium Chloride (Sodium Chloride Flush Syringe 10 Ml) 10 ml IV BID [facility] Last Admin: 03/16/18 10:40 Dose: 10 ml Sodium Chloride (Sodium Chloride Flush Syringe 10 Ml) 10 ml IV PRN PRN PRN Reason: LINE FLUSH Physical Examination Vital signs: Vital Signs Temp Pulse Resp BP Pulse Ox 98.6 F 76 18 183/100 98 03/15/18 16:55 03/15/18 16:55 03/15/18 16:55 03/15/18 16:55 03/15/18 16:55 Results - Laboratory Findings CBC and BMP: 03/16/18 03:21 03/16/18 03:21 Abnormal lab findings: Abnormal Labs 03/15/18 03/15/18 03/15/18 17:10 17:36 20:22 RBC 2.74 L Hgb 8.2 L Hct 24.3 L RDW 15.8 H Lymph % (Auto) 10.7 L [place] % (Auto) 8.2 H Lymph # 0.9 L Seg Neutrophils % 77.8 H Potassium 5.3 H Chloride 96.6 L Carbon Dioxide BUN 59 H Creatinine 9.0 H Glucose Calcium 7.7 L Troponin T 0.135 H* 0.147 H* 03/15/18 03/16/18 03/16/18 23:46 03:21 03:21 RBC 2.64 L Hgb 7.9 L Hct 23.2 L RDW 16.1 H Lymph % (Auto) 13.3 L [place] % (Auto) Lymph # 1.1 L Seg Neutrophils % 76.9 H Potassium 5.2 H Chloride Carbon Dioxide 19 L BUN 65 H Creatinine 9.4 H Glucose 101 H Calcium 7.3 L Troponin T 0.127 H* 03/16/18 05:58 RBC Hgb Hct RDW Lymph % (Auto) [place] % (Auto) Lymph # Seg Neutrophils % Potassium Chloride Carbon Dioxide BUN Creatinine Glucose Calcium Troponin T 0.132 H*
[2018-03-16] MEDS: NORMODYNE PO SCH ×2 (13:15→22:08)
[2018-03-16] MEDS: PROCARDIA XL PO SCH ×2 (13:15→22:08)
[2018-03-16] MEDS: PEPCID PO SCH (13:15)
--- NOTE | 2018-03-16 14:30 | Progress Note ---
Subjective Date of service: 03/16/18 Objective - Constitutional Vitals: Vital Signs - 12hr 03/16/18 03/16/18 03/16/18 02:44 02:50 03:01 Temperature Pulse Rate 82 79 82 Pulse Rate [ Radial] Respiratory 19 18 13 Rate Blood Pressure 200/99 166/93 O2 Sat by Pulse 99 100 Oximetry 03/16/18 03/16/18 03/16/18 03:11 03:21 03:30 Temperature Pulse Rate 83 83 86 Pulse Rate [ Radial] Respiratory 13 17 25 H Rate Blood Pressure 200/99 179/86 189/95 O2 Sat by Pulse 99 98 98 Oximetry 03/16/18 03/16/18 03/16/18 03:41 03:50 04:09 Temperature Pulse Rate 80 Pulse Rate [ Radial] Respiratory 17 Rate Blood Pressure 189/95 186/100 186/100 O2 Sat by Pulse 99 73 L 99 Oximetry 03/16/18 03/16/18 03/16/18 04:11 04:21 04:31 Temperature Pulse Rate 86 82 Pulse Rate [ Radial] Respiratory 14 29 H Rate Blood Pressure 186/100 191/90 157/83 O2 Sat by Pulse 99 98 97 Oximetry 03/16/18 03/16/18 03/16/18 04:41 04:51 05:00 Temperature Pulse Rate 74 79 80 Pulse Rate [ Radial] Respiratory 20 14 17 Rate Blood Pressure 186/100 162/87 172/91 O2 Sat by Pulse 96 97 97 Oximetry 03/16/18 03/16/18 03/16/18 05:11 05:21 05:30 Temperature Pulse Rate 82 78 81 Pulse Rate [ Radial] Respiratory 17 17 18 Rate Blood Pressure 157/83 157/86 163/88 O2 Sat by Pulse 97 96 97 Oximetry 03/16/18 03/16/18 03/16/18 05:41 05:51 06:00 Temperature Pulse Rate 80 82 80 Pulse Rate [ Radial] Respiratory 17 22 17 Rate Blood Pressure 163/88 169/88 167/87 O2 Sat by Pulse 97 95 98 Oximetry 03/16/18 03/16/18 03/16/18 06:11 06:21 06:30 Temperature Pulse Rate 78 83 83 Pulse Rate [ Radial] Respiratory 17 19 14 Rate Blood Pressure 167/87 153/76 160/90 O2 Sat by Pulse 96 96 96 Oximetry 03/16/18 03/16/18 03/16/18 06:41 06:45 06:47 Temperature Pulse Rate 77 75 Pulse Rate [ 80 Radial] Respiratory 18 14 16 Rate Blood Pressure 160/90 175/80 O2 Sat by Pulse 95 96 Oximetry 03/16/18 03/16/18 03/16/18 06:48 07:00 07:15 Temperature 98.5 F Pulse Rate 78 73 Pulse Rate [ Radial] Respiratory 18 16 Rate Blood Pressure 187/85 173/80 O2 Sat by Pulse 92 96 Oximetry 03/16/18 03/16/18 03/16/18 07:30 07:45 08:00 Temperature Pulse Rate 75 79 79 Pulse Rate [ Radial] Respiratory 16 16 15 Rate Blood Pressure 164/78 160/85 178/94 O2 Sat by Pulse 95 96 97 Oximetry 03/16/18 03/16/18 03/16/18 08:15 08:30 08:45 Temperature Pulse Rate 78 79 80 Pulse Rate [ Radial] Respiratory 16 13 16 Rate Blood Pressure 178/94 157/83 150/82 O2 Sat by Pulse 97 97 98 Oximetry 03/16/18 03/16/18 03/16/18 08:54 09:00 09:15 Temperature Pulse Rate 79 78 Pulse Rate [ Radial] Respiratory 12 16 Rate Blood Pressure 170/82 156/80 O2 Sat by Pulse 97 98 97 Oximetry 03/16/18 03/16/18 03/16/18 09:30 09:45 10:00 Temperature Pulse Rate 78 80 78 Pulse Rate [ Radial] Respiratory 15 19 17 Rate Blood Pressure 162/90 168/84 163/88 O2 Sat by Pulse 99 98 96 Oximetry 03/16/18 03/16/18 03/16/18 10:15 10:25 10:30 Temperature Pulse Rate 78 78 80 Pulse Rate [ Radial] Respiratory 19 18 Rate Blood Pressure 163/83 163/83 171/88 O2 Sat by Pulse 96 97 Oximetry 03/16/18 03/16/18 03/16/18 10:45 11:00 11:01 Temperature Pulse Rate 78 75 75 Pulse Rate [ Radial] Respiratory 19 17 Rate Blood Pressure 178/88 163/82 163/82 O2 Sat by Pulse 97 97 Oximetry 03/16/18 03/16/18 03/16/18 11:15 11:30 11:31 Temperature Pulse Rate 70 70 83 Pulse Rate [ Radial] Respiratory 14 21 Rate Blood Pressure 169/75 172/82 172/82 O2 Sat by Pulse 95 98 Oximetry 03/16/18 03/16/18 03/16/18 11:45 12:00 12:15 Temperature Pulse Rate 83 75 75 Pulse Rate [ Radial] Respiratory Rate Blood Pressure 182/86 178/83 163/89 O2 Sat by Pulse Oximetry 03/16/18 03/16/18 03/16/18 12:30 12:45 13:00 Temperature Pulse Rate 75 75 74 Pulse Rate [ Radial] Respiratory Rate Blood Pressure 161/84 178/82 188/95 O2 Sat by Pulse Oximetry 03/16/18 03/16/18 03/16/18 13:15 13:30 13:45 Temperature Pulse Rate 74 77 69 Pulse Rate [ Radial] Respiratory Rate Blood Pressure 182/98 170/83 148/72 O2 Sat by Pulse Oximetry - Labs CBC & Chem 7: 03/16/18 03:21 03/16/18 03:21 Labs: Abnormal lab results 03/15/18 03/15/18 03/15/18 Range/Units 17:10 17:36 20:22 RBC 2.74 L (3.65-5.03) M/mm3 Hgb 8.2 L (10.1-14.3) gm/dl Hct 24.3 L (30.3-42.9) % RDW 15.8 H (13.2-15.2) % Lymph % (Auto) 10.7 L (13.4-35.0) % Bland % (Auto) 8.2 H (0.0-7.3) % Lymph # 0.9 L (1.2-5.4) K/mm3 Seg Neutrophils % 77.8 H (40.0-70.0) % Potassium 5.3 H (3.6-5.0) mmol/L Chloride 96.6 L (98-107) mmol/L Carbon Dioxide (22-30) mmol/L BUN 59 H (7-17) mg/dL Creatinine 9.0 H (0.7-1.2) mg/dL Glucose (65-100) mg/dL Calcium 7.7 L (8.4-10.2) mg/dL Troponin T 0.135 H* 0.147 H* (0.00-0.029) ng/mL 03/15/18 03/16/18 03/16/18 Range/Units 23:46 03:21 03:21 RBC 2.64 L (3.65-5.03) M/mm3 Hgb 7.9 L (10.1-14.3) gm/dl Hct 23.2 L (30.3-42.9) % RDW 16.1 H (13.2-15.2) % Lymph % (Auto) 13.3 L (13.4-35.0) % Bland % (Auto) (0.0-7.3) % Lymph # 1.1 L (1.2-5.4) K/mm3 Seg Neutrophils % 76.9 H (40.0-70.0) % Potassium 5.2 H (3.6-5.0) mmol/L Chloride (98-107) mmol/L Carbon Dioxide 19 L (22-30) mmol/L BUN 65 H (7-17) mg/dL Creatinine 9.4 H (0.7-1.2) mg/dL Glucose 101 H (65-100) mg/dL Calcium 7.3 L (8.4-10.2) mg/dL Troponin T 0.127 H* (0.00-0.029) ng/mL 03/16/18 Range/Units 05:58 RBC (3.65-5.03) M/mm3 Hgb (10.1-14.3) gm/dl Hct (30.3-42.9) % RDW (13.2-15.2) % Lymph % (Auto) (13.4-35.0) % Bland % (Auto) (0.0-7.3) % Lymph # (1.2-5.4) K/mm3 Seg Neutrophils % (40.0-70.0) % Potassium (3.6-5.0) mmol/L Chloride (98-107) mmol/L Carbon Dioxide (22-30) mmol/L BUN (7-17) mg/dL Creatinine (0.7-1.2) mg/dL Glucose (65-100) mg/dL Calcium (8.4-10.2) mg/dL Troponin T 0.132 H* (0.00-0.029) ng/mL
[2018-03-16] MEDS: LONITEN PO SCH (22:09)
--- NOTE | 2018-03-17 09:14 | Consultation ---
CONSULTING PHYSICIAN: Dr. Jamee Jacques. REASON FOR CONSULTATION: 1. Hypertensive emergency. 2. Acute on chronic kidney injury. CHIEF COMPLAINT AND HISTORY OF PRESENT ILLNESS: The patient is a 57-year-old female with past medical history significant for end-stage renal disease for at least about 10 years, according to her for which she tells me her dialysis is on Friday, and Friday, came in to the Emergency Room complaining of sudden shortness of breath, paroxysmal nocturnal dyspnea, orthopnea. She had apparently been seen in this hospital a few days ago with similar complaints and she apparently signed out against medical advice at that time because she has a court date. It seems like she is not set up with any outpatient dialysis center and so has relied on us for her dialysis treatments. She was evaluated in the Emergency Room and found to be volume overloaded, found to have malignant hypertension and was started on a Cardene drip. Intensive Care Unit admission was requested. She was brought in to the ICU where I did see her. When I stopped by to see her, she was on dialysis machine. She was beginning to feel better. No acute chest pain, no nausea, vomiting, or overt aspiration. She denies tobacco use or abuse whatsoever. This really is as much of the history of presentation as I have. PAST MEDICAL HISTORY: End-stage renal disease, on dialysis, congestive heart failure, hypertension and she tells me she has a thyroid problem. PAST SURGICAL HISTORY: She has an AV fistula. MEDICATIONS: She was on at the time I stopped by to see were reviewed. Pertinent medications included the following: She was on Lovenox 30 mg subq daily, hydralazine 5 mg IV q. 6 hours p.r.n., labetalol 200 mg p.o. b.i.d., Levaquin 500 mg IV q.48h., minoxidil 10 mg p.o. b.i.d. She was on a Cardene drip at 2.5 mg per hour. Nifedipine 60 mg p.o. q.12h. had just been started. Percocet 5/325 one tablet p.o. q. 6 hours p.r.n. moderate pain. ALLERGIES: PREGABALIN. Nature of this allergy is unknown. DIET: Thin lady, acute weight loss or gain history is unknown. FAMILY AND SOCIAL HISTORY: Lives in the community. Denies alcohol, tobacco, or IV drug use or abuse. FAMILY HISTORY: Positive for hypertension. She denies any diabetes. REVIEW OF SYSTEMS: No loss of consciousness. No new onset seizures. No new onset focal weakness. No gross hematochezia or melena. No gross hematuria, no hematemesis, no hemoptysis, no palpitations. Complete 13-system review of systems obtained. Pertinent positives and/or negatives as in body of history above, otherwise they are noncontributory. PHYSICAL EXAMINATION: VITAL SIGNS: At presentation in the emergency room, she was afebrile, temperature 98.6 degrees Fahrenheit, pulse of 76, respiratory rate of 18, blood pressure 183/100 and oxygen sats 98%, inspired oxygen concentration was not recorded. At the time that I saw her, she was 97% on room air. GENERAL: Middle-aged female, looks her stated age, normocephalic, atraumatic, talking to me in uninterrupted sentences at worst, in mild respiratory distress. She was hooked up on the dialysis machine. HEAD, EYES, EARS, NOSE AND THROAT: She is anicteric. No conjunctival erythema. Grossly, no palpable lymph nodes in the supraclavicular or submandibular lymph node chains. She does have some abnormal soft tissue bilaterally around the thyroid region that is nontender, soft. Oropharynx is moist. No gross thyromegaly, otherwise. LUNGS: Auscultation of both lung fel[place] significant for bibasilar rales, scant though. No wheezing. HEART: Heart sounds 1 and 2 are heard, regular rate and rhythm at time of my evaluation. No rubs. She had a soft, about 2/6 systolic murmur that was heard really all over the anterior chest wall, aortic, tricuspid, pulmonary regions. ABDOMEN: Soft, flat. Bowel sounds are positive, nontender. No palpable hepatosplenomegaly. EXTREMITIES: Without overt digital clubbing, cyanosis, or pedal edema. NEUROLOGIC: Pupils equal, round, reactive to light. Moves all 4 extremities spontaneously. LABORATORY DATA: From my review are as follows: Admission white cell count 8000, hemoglobin 8.2, hematocrit 24.3, platelet count 184. No band forms. Serum sodium 139, potassium 5.3, chloride 97, bicarbonate 22, BUN 59, creatinine 9.0, glucose 7.7. Troponin was 0.135. RADIOLOGICAL DATA: A chest x-ray was done as was a 2D echocardiogram. I do not have 2D echocardiogram results. Chest x-ray shows gross cardiomegaly, right lower lobe infiltrate or possible vascular deformity. I cannot rule out a pleural effusion on the left, but most likely the left heart border, increased interstitial markings with cephalization consistent with [id number] pulmonary edema. No gross pneumothorax, no gross bony fractures. Compared to an x-ray from a few days ago and essentially looks similar. ASSESSMENT AND PLAN: 1. Acute hypoxemic respiratory failure, improved. 2. Acute pulmonary edema, possibly on chronic. 3. End-stage renal disease, on dialysis. 4. I cannot rule out pneumonia; however, I think we are dealing mostly with pulmonary edema. 5. History of thyroid disease. 6. Anemia, normocytic, probably of chronic disease. 7. Hyperkalemia. 8. Elevated serum troponins. 9. Cardiomyopathy. PLAN: We will look towards dialysis for toxin and volume clearance. She is already doing better. Oxygenation is improved. Oxygen will be instituted if O2 sats drop below 90%. Aspiration precautions are being maintained. She is currently on Levaquin; however, I am not convinced of the true infectious potential of this infiltrates in the lungs. CRP level, lactic acid level will be ordered and will be used as an adjunct to de-escalation of anti-infective therapy. In the meantime, sputum will be sent for Gram stain, cultures and sensitivities if she is able to cough up some. She will be started on GI and DVT prophylaxis. Cardiology evaluation will be in order in light of the elevated treatment troponins and the cardiomyopathy. A 2D echocardiogram has been ordered and will be followed. Again, she will be placed on GI and DVT prophylaxis. Flu and pneumonia vaccination will be per protocol. Thank you very much for the consult, Dr. Jacques. We will follow along and make further recommendations as picture progresses/becomes clearer. Hopefully, she improves quickly and can be transferred out of the Intensive Care Unit, possibly even as early as today. JOB# [id number] TAVARES/GLADYS
--- NOTE | 2018-03-17 09:52 | Discharge Summary ---
Providers - Providers Date of Admission: 03/15/18 23:32 Date of discharge: 03/17/18 Attending physician: JESSICA FERNANDES 03/15/18 23:32 Consult to Physician [CONS] Routine Comment: Consulting Provider: EMILY OSPINA Physician Instructions: Reason For Exam: hd 03/16/18 01:31 Consult to Physician [CONS] Routine Comment: Consulting Provider: INGA VAZQUEZ Physician Instructions: Reason For Exam: CCU Primary care physician: AIDA SAVAGE Hospitalization Condition: Fair Disposition: DC-01 TO HOME OR SELFCARE Core Measure Documentation - Palliative Care Palliative Care/ Comfort Measures: Not Applicable - Core Measures Any of the following diagnoses?: none Exam - Constitutional Vitals: Temp Pulse Resp BP Pulse Ox 98.6 F 85 18 147/77 96 03/17/18 07:27 03/17/18 07:27 03/17/18 07:27 03/17/18 07:27 03/17/18 08:35 General appearance: Present: no acute distress, well-nourished - EENT Eyes: Present: PERRL ENT: hearing intact, clear oral mucosa - Neck Neck: Present: supple, normal ROM - Respiratory Respiratory effort: normal Respiratory: bilateral: CTA - Cardiovascular Heart Sounds: Present: S1 & S2. Absent: rub, click - Extremities Extremities: pulses symmetrical, No edema Peripheral Pulses: within normal limits - Abdominal General gastrointestinal: Present: soft, non-tender, non-distended, normal bowel sounds Female genitourinary: Present: normal - Integumentary Integumentary: Present: clear, warm, dry - Musculoskeletal Musculoskeletal: gait normal, strength equal bilaterally - Psychiatric Psychiatric: appropriate mood/affect, intact judgment & insight - Neurologic Neurologic: CNII-XII intact, moves all extremities Plan Activity: no restrictions Diet: renal Special Instructions: restrict fluid intake to (800 ml per day) Follow up with: AIDA SAVAGE MD [Primary Care Provider] - 3-5 Days
--- NOTE | 2018-03-17 10:13 | Progress Note ---
Assessment and Plan Assessment Volume overload Hypertension malignant Pneumonia, community-acquired End-stage renal disease needing dialysis Plan hd today uf as tolerated bp control renal diet daily lytes strict i/os ok to dc after hd today Subjective Date of service: 03/17/18 Principal diagnosis: esrd Interval history: resting well in bed today Objective - Exam Narrative Exam: Gen. appearance: Patient lying in bed, no apparent distress HEENT: Normocephalic, atraumatic, pupils equally round and reactive to light, extraocular movement intact, and no sclericterus,. No JVD or thyromegaly or nodule,neck supple, no carotid bruit ,mucous membranes moist, no exudate or erythema Heart: S1, S2, regular rate and rhythm Lungs: Crackles bilaterally, breathing comfortable Abdomen: Positive bowel sounds, nontender, nondistended, no organomegaly Extremity: No edema, cyanosis, clubbing Skin: No rash, nodules, warm, dry Neuro: Oriented 3, cranial nerves II-12 intact, speech is fluent, motor and sensory intact - Vital Signs Vital signs: Vital Signs - 12hr 03/17/18 03/17/18 07:27 08:35 Temperature 98.6 F Pulse Rate 85 Respiratory 18 Rate Blood Pressure 147/77 O2 Sat by Pulse 97 96 Oximetry - Lab 03/16/18 03:21 03/16/18 03:21 Most recent lab results Calcium 7.3 mg/dL (8.4-10.2) L 03/16/18 03:21
[2018-03-17] MEDS ORDERED: NACL 0.9 (PRIMING MACHINE ONLY DIALYSIS) MC ONE (13:11)
[2018-03-17] MEDS: PEPCID PO SCH (17:06)
[2018-03-17] MEDS: PROCARDIA XL PO SCH (17:07)
[2018-03-17] MEDS: NORMODYNE PO SCH (17:07)
[2018-03-17] MEDS: LOVENOX SUB-Q SCH (17:08)
[2018-03-17] MEDS: LONITEN PO SCH (17:08)
[2018-03-17] MEDS: SODIUM CHLORIDE FLUSH SYRINGE 10 ML IV SCH (17:10)
[2018-03-17 18:00] VITALS: BP 167/97
[2018-03-18] MEDS ORDERED: LEVAQUIN PO SCH (10:00)
== END 2018-03-17 18:30 | disposition home or self-care (01) | DRG 291 ==
LOC: ED 16:35 → 4A 23:32 → CC1 03-16 01:42 → 3A 03-16 17:00
PROVIDERS: ADMIT Internal Medicine; ATTEND Internal Medicine
PROC: 5A1D70Z Performance of Urinary Filtration, Intermittent, Less than 6 Hours Per Day (ICD-10-PCS; principal; 2018-03-16)
PROC: 5A1D70Z Performance of Urinary Filtration, Intermittent, Less than 6 Hours Per Day (ICD-10-PCS; 2018-03-17)
DX: I13.2 Hypertensive heart and chronic kidney disease with heart failure and with stage 5 chronic kidney disease, or end stage renal disease (principal); N18.6 End stage renal disease; J18.9 Pneumonia, unspecified organism; G82.20 Paraplegia, unspecified; E87.70 Fluid overload, unspecified; I50.9 Heart failure, unspecified; K21.9 Gastro-esophageal reflux disease without esophagitis; Z99.2 Dependence on renal dialysis; I69.398 Other sequelae of cerebral infarction; Z82.49 Family history of ischemic heart disease and other diseases of the circulatory system; Z88.8 Allergy status to other drugs, medicaments and biological substances
CPT/HCPCS: 36415; 71045; 80048; 82140; 82550; 82553; 84484; 85025; 86140; 93005; 93010; 93306; 96374; J0360; J1650; J1956; J2405; J7030; J7050

== ENCOUNTER 2018-03-21 17:31 | Inpatient (IN) | payer OTHER ==
[2018-03-21] MEDS ORDERED: ASPIRIN PO ONE (17:46)
[2018-03-21 18:16] LABS: Basophils # (Auto) 0.1 K/mm3 (0.0-0.1); Basophils % (Auto) 1.1 % (0.0-1.8); Eosinophils # (Auto) 0.1 K/mm3 (0.0-0.4); Eosinophils % (Auto) 1.2 % (0.0-4.3); Hematocrit 28.9 % (30.3-42.9); Hemoglobin 9.2 gm/dl (10.1-14.3); Lymphocytes % (Auto) 12.7 % (13.4-35.0); Mean Corpuscular HGB Conc 32 % (30-34); Mean Corpuscular Hemoglobin 30 pg (28-32); Mean Corpuscular Volume 95 fl (79-97); Monocytes # (Auto) 0.5 K/mm3 (0.0-0.8); Monocytes % (Auto) 6.2 % (0.0-7.3); Platelet Count 175 K/mm3 (140-440); Red Blood Count 3.05 M/mm3 (3.65-5.03); Red Cell Distribution Width 16.2 % (13.2-15.2)
[2018-03-21 18:27] LABS: Calcium 7.3 mg/dL (8.4-10.2)
[2018-03-21 19:04] LABS: Chol/HDL Ratio 3.96 %
[2018-03-21] MEDS ORDERED: NORCO 5/325 PO ONE (21:10)
--- NOTE | 2018-03-21 21:30 | Emergency Department Report ---
ED Shortness of Breath HPI - General Chief Complaint: Chest Pain Stated Complaint: CP/DIALYSIS Time Seen by Provider: 03/21/18 21:04 Source: patient Mode of arrival: Ambulatory Limitations: No Limitations - History of Present Illness Initial Comments: 57-year-old female with a past medical history end-stage renal disease on dialysis, diabetes, GERD, previous CVA, and CHF presents to the hospital complains of shortness of breath, chest pain, left lower quadrant pain. Symptoms started today. Patient states she had similar symptoms in the past when she needs dialysis. Last dialysis was on the here in the hospital. She is visiting from [facility] and does not have a local dialysis symptoms. She was scheduled to go back yesterday but could not get a flight but now is scheduled to go back home on March 24. Left lower quadrant abdominal pain is intermittent and worse with palpation. No nausea, vomiting, or diaphoresis reported. This is patient's third ED visit for dialysis since March 11. Patient does not make urine - Related Data Home Medications Medication Instructions Recorded Confirmed Last Taken NIFEdipine [Procardia] 1 tab PO DAILY 03/16/18 03/16/18 Unknown Previous Rx's Medication Instructions Recorded Last Taken Type Labetalol [Normodyne TAB] 200 mg PO BID #60 tablet 03/17/18 Unknown Rx Minoxidil [Loniten] 10 mg PO BID #60 tablet 03/17/18 Unknown Rx NIFEdipine XL [Procardia Xl] 60 mg PO Q12HR #60 tablet 03/17/18 Unknown Rx Allergies Allergy/AdvReac Type Severity Reaction Status Date / Time pregabalin [From Lyrica] Allergy Unknown Verified 03/15/18 22:25 ED Review of Systems ROS: Stated complaint: CP/DIALYSIS Other details as noted in HPI Comment: All other systems reviewed and negative ED Past Medical Hx - Past Medical History Hx Hypertension: Yes Hx CVA: Yes (weakness in legs) Hx Congestive Heart Failure: Yes Hx Diabetes: No Hx GERD: Yes Hx Renal Disease: Yes (HD MWF) Hx Asthma: No Hx COPD: No Additional medical history: Sciatic nerve damage, Ectopic x 2, Left and right arm AV grafts - Surgical History Additional Surgical History: AV grafts in left arm, Right arm AV grafts - Social History Smoking Status: Never Smoker Substance Use Type: None - Medications Home Medications: Home Medications Medication Instructions Recorded Confirmed Last Taken Type NIFEdipine [Procardia] 1 tab PO DAILY 03/16/18 03/16/18 Unknown History Labetalol [Normodyne TAB] 200 mg PO BID #60 tablet 03/17/18 Unknown Rx Minoxidil [Loniten] 10 mg PO BID #60 tablet 03/17/18 Unknown Rx NIFEdipine XL [Procardia Xl] 60 mg PO Q12HR #60 tablet 03/17/18 Unknown Rx ED Physical Exam - General Limitations: No Limitations - Other Other exam information: General: No limitations, patient is alert in no acute distress Head exam: Atraumatic, normocephalic Eyes exam: Normal appearance, pupils equal reactive to light, extraocular movements intact ENT: Moist mucous membrane, normal oropharynx Neck exam: Normal inspection, full range of motion, no meningismus nontender Respiratory exam: No Rales, wheezes, or tachypnea Cardiovascular: Normal rate and rhythm, systolic murmur Abdomen: Soft, nondistended, left lower quadrant tenderness, with normal bowel sounds, no rebound, or guarding Extremity: Full range of motion, right arm AV graft palpable thrill Back: Normal Inspection, full range of motion, no tenderness Neurologic: Alert, oriented x3, cranial nerves intact, no motor or sensory deficit Psychiatric: normal affect, normal mood Skin: Warm, dry, intact ED Course Vital Signs 03/21/18 17:47 Temperature 98 F Pulse Rate 86 Respiratory 16 Rate Blood Pressure 189/96 O2 Sat by Pulse 96 Oximetry - Consultations Consultation #1: 03/21/18 21:19 case d/w DR Jolly, will perform dialysis ED Medical Decision Making - Lab Data Result diagrams: 03/21/18 17:54 03/21/18 17:54 Lab Results 03/21/18 03/21/18 Range/Units 17:54 17:54 WBC 8.1 (4.5-11.0) K/mm3 RBC 3.05 L (3.65-5.03) M/mm3 Hgb 9.2 L (10.1-14.3) gm/dl Hct 28.9 L (30.3-42.9) % MCV 95 (79-97) fl MCH 30 (28-32) pg MCHC 32 (30-34) % RDW 16.2 H (13.2-15.2) % Plt Count 175 (140-440) K/mm3 Lymph % (Auto) 12.7 L (13.4-35.0) % [place] % (Auto) 6.2 (0.0-7.3) % Eos % (Auto) 1.2 (0.0-4.3) % Baso % (Auto) 1.1 (0.0-1.8) % Lymph # 1.0 L (1.2-5.4) K/mm3 Johnston # 0.5 (0.0-0.8) K/mm3 Eos # 0.1 (0.0-0.4) K/mm3 Baso # 0.1 (0.0-0.1) K/mm3 Seg Neutrophils % 78.8 H (40.0-70.0) % Seg Neutrophils # 6.4 (1.8-7.7) K/mm3 Sodium 137 (137-145) mmol/L Potassium 4.8 (3.6-5.0) mmol/L Chloride 90.4 L (98-107) mmol/L Carbon Dioxide 21 L (22-30) mmol/L Anion Gap 30 mmol/L BUN 77 H (7-17) mg/dL Creatinine 9.9 H (0.7-1.2) mg/dL Estimated GFR 4 ml/min BUN/Creatinine Ratio 8 % Glucose 130 H (65-100) mg/dL Calcium 7.3 L (8.4-10.2) mg/dL Troponin T 0.155 H* (0.00-0.029) ng/mL Triglycerides 130 (2-149) mg/dL Cholesterol 202 H (50-199) mg/dL LDL Cholesterol Direct 141 H (50-130) mg/dL HDL Cholesterol 51 (40-59) mg/dL Cholesterol/HDL Ratio 3.96 % - EKG Data -: EKG Interpreted by [facility] EKG shows normal: sinus rhythm (74), axis (qrs -47), QRS complexes (99), ST-T waves (lat t inv) - EKG Data When compared to previous EKG there are: no significant change - Radiology Data Radiology results: report reviewed Read by radiologist Chest x-ray PA and lateral IMPRESSION: Cardiomegaly with pulmonary venous congestion. COPD No acute pulmonary process Widening of the superior mediastinum is most likely secondary to prominent vasculature. Differential diagnosis includes a etiologies such as goiter, lymphadenopathy.. - Medical Decision Making Patient provided [place] for pain. She is discussed symptoms are related to needing dialysis. Troponin is elevated but at baseline. EKG unchanged from previous. Will be admitted to receive dialysis. She is stable for dialysis tomorrow. [employer] informed and will arrange for dialysis. Hospitalist informed. - Differential Diagnosis CHF, NV, renal failure, Critical Care Time: No Critical care attestation.: If time is entered above; I have spent that time in minutes in the direct care of this critically ill patient, excluding procedure time. ED Disposition Clinical Impression: Volume overload, Shortness of breath, End stage renal disease on dialysis, Chest pain Disposition: OP ADMIT IP TO THIS HOSP Is pt being admited?: Yes Does the pt Need Aspirin: Yes Condition: Stable Time of Disposition: 21:34 (Dr Babin/hosp)
--- NOTE | 2018-03-21 22:02 | XRay Report ---
FINAL REPORT PROCEDURE: XR CHEST ROUTINE 2V TECHNIQUE: PA and lateral chest radiographs were obtained. CPT 39937 HISTORY: sob COMPARISON: 03/11/2018 FINDINGS: Heart: Moderate degree cardiomegaly is noted. Mediastinum/Vessels: Widening of the superior mediastinum is noted as seen on the prior study there is pulmonary venous congestion. Lungs/Pleural space: Lungs are hyperinflated. There are no confluent infiltrates or mass lesions. Pleural spaces are clear.. Bony thorax: No acute osseous abnormality. Other: IMPRESSION: Cardiomegaly with pulmonary venous congestion. COPD No acute pulmonary process Widening of the superior mediastinum is most likely secondary to prominent vasculature. Differential diagnosis includes a etiologies such as goiter, lymphadenopathy..
[2018-03-21] MEDS ORDERED: PROVENTIL IH PRN (22:32)
[2018-03-21] MEDS ORDERED: TYLENOL PO PRN (22:33)
[2018-03-21] MEDS ORDERED: MORPHINE IV PRN (22:35)
[2018-03-21] MEDS ORDERED: NITROSTAT SL PRN (22:40)
[2018-03-21] MEDS ORDERED: TYLENOL PR PRN (22:46)
[2018-03-21] MEDS ORDERED: HEPARIN ONE (23:26)
[2018-03-21] MEDS: HEPARIN SUB-Q SCH (23:31)
[2018-03-21] MEDS ORDERED: MORPHINE ONE (23:54)
[2018-03-21] MEDS ORDERED: NITROSTAT SL ONE (23:55)
[2018-03-22] MEDS: ZOFRAN IV PRN
[2018-03-22] MEDS ORDERED: ZOFRAN ONE (00:07)
[2018-03-22] MEDS ORDERED: NITRO-BID 2% TP PRN (00:44)
[2018-03-22] MEDS ORDERED: APRESOLINE IV ONE (00:47)
[2018-03-22] MEDS ORDERED: NITRO-BID 2% TP ONE (00:49)
[2018-03-22] MEDS ORDERED: APRESOLINE ONE (00:49)
[2018-03-22 09:06] LABS: Creatine Kinase MB 3.6 ng/mL (0.0-4.0)
[2018-03-22] MEDS: ASPIRIN PO SCH (09:35)
[2018-03-22] MEDS: PROCARDIA XL PO SCH ×2 (09:35→21:28)
[2018-03-22] MEDS: HEPARIN SUB-Q SCH ×2 (09:35→21:27)
[2018-03-22] MEDS ORDERED: NORMODYNE PO SCH (10:00)
[2018-03-22] MEDS ORDERED: ZITHROMAX 500 MG in NACL 0.9% 250ML 250 ML IV SCH (10:00)
[2018-03-22] MEDS ORDERED: ROCEPHIN/NS 1 GM/50 ML 1 GM/50 ML BAG IV SCH (10:00)
[2018-03-22] MEDS ORDERED: LONITEN PO SCH (10:00)
[2018-03-22] MEDS ORDERED: PROCARDIA*For Tocolysis only PO SCH (10:00)
--- NOTE | 2018-03-22 11:16 | Consultation ---
History of Present Illness Consult date: 03/22/18 Consult reason: congestive heart failure History of present illness: 56 year old female presenting with shortness of breath. Patient claims to have missed dialysis secondary to missing her flight back to [facility]. On arrival to the emergency room patient's chest x-ray shows patient to be in mild pulmonary edema. Past History Past Medical History: ESRD, hypertension Social history: no significant social history Medications and Allergies Allergies Allergy/AdvReac Type Severity Reaction Status Date / Time pregabalin [From Lyrica] Allergy Unknown Verified 03/15/18 22:25 Home Medications Medication Instructions Recorded Confirmed Last Taken Type NIFEdipine [Procardia] 1 tab PO DAILY 03/16/18 03/16/18 Unknown History Labetalol [Normodyne TAB] 200 mg PO BID #60 tablet 03/17/18 Unknown Rx Minoxidil [Loniten] 10 mg PO BID #60 tablet 03/17/18 Unknown Rx NIFEdipine XL [Procardia Xl] 60 mg PO Q12HR #60 tablet 03/17/18 Unknown Rx Active Meds: Active Medications Acetaminophen (Tylenol) 650 mg PO Q4H PRN PRN Reason: Fever Acetaminophen (Tylenol) 650 mg [place] Q4H PRN PRN Reason: For Pain/Fever/Headache Albuterol (Proventil) 2.5 mg IH Q6H PRN PRN Reason: Shortness Of Breath Aspirin (Aspirin) 325 mg PO QDAY [facility] Last Admin: 03/22/18 09:35 Dose: 325 mg Heparin Sodium (Porcine) (Heparin) 5,000 unit SUB-Q Q12HR [facility] Last Admin: 03/22/18 09:35 Dose: 5,000 unit Azithromycin 500 mg/ Sodium (Chloride) 250 mls @ 250 mls/hr IV Q24HR [facility] Ceftriaxone Sodium 1 gm/ (Sodium Chloride) 20 mls @ 2 mls/min IV Q24HR [facility] Labetalol HCl (Normodyne) 200 mg PO BID [facility] Last Admin: 03/22/18 09:34 Dose: 200 mg Minoxidil (Loniten) 10 mg PO BID [facility] Last Admin: 03/22/18 09:46 Dose: 10 mg Morphine Sulfate (Morphine) 2 mg IV Q3H PRN PRN Reason: Pain, Moderate (4-6) Last Admin: 03/21/18 23:59 Dose: 2 mg Nifedipine (Procardia Xl) 60 mg PO Q12HR [facility] Last Admin: 03/22/18 09:35 Dose: 60 mg Nitroglycerin (Nitrostat) 0.4 mg SL .Q5MIN PRN PRN Reason: Chest Pain Last Admin: 03/21/18 23:58 Dose: 0.4 mg Nitroglycerin (Nitro-Bid 2%) 1 inch TP Q6H PRN; Protocol PRN Reason: Chest Pain Last Admin: 03/22/18 00:57 Dose: 1 inch Ondansetron HCl (Zofran) 4 mg IV Q8H PRN PRN Reason: Nausea And Vomiting Last Admin: 03/22/18 00:00 Dose: 4 mg Review of Systems Constitutional: weakness, no weight loss, no weight gain, no anorexia, no fatigue Ears, nose, mouth and throat: no ear pain, no ear discharge, no tinnitis, no bleeding gums, no dental pain Cardiovascular: shortness of breath, dyspnea on exertion, high blood pressure, no chest pain, no orthopnea Respiratory: no cough, no cough with sputum, no hemoptysis, no wheezing, no pleurisy Gastrointestinal: no abdominal pain, no vomiting Genitourinary Female: no pelvic pain, no flank pain, no dysuria Musculoskeletal: no neck stiffness, no neck pain, no shooting arm pain, no redness of joints Integumentary: no rash, no pruritis, no redness Neurological: no weakness, no parathesias, no numbness, no syncope, no headaches Endocrine: no cold intolerance, no heat intolerance, no polydipsia, no polyuria , no nocturia Hematologic/Lymphatic: no easy bruising, no easy bleeding Allergic/Immunologic: no urticaria, no allergic rhinitis, no wheezing Physical Examination Vital Signs Temp Pulse Resp BP Pulse Ox 98 F 86 16 189/96 96 03/21/18 17:47 03/21/18 17:47 03/21/18 17:47 03/21/18 17:47 03/21/18 17:47 General appearance: no acute distress, well-nourished HEENT: Positive: PERRL Neck: Positive: neck supple, trachea midline. Negative: JVD/HJR Cardiac: Positive: Regular Rate, S1/S2, S4, Systolic Murmur, PMI, Laterally Displaced Lungs: Positive: No Wheeze, Rales, Rhonchi Neuro: Positive: Grossly Intact Abdomen: Positive: Unremarkable, Soft Extremities: Absent: edema Results 03/21/18 17:54 03/21/18 17:54 Cardiac Enzymes 03/22/18 03/22/18 Range/Units 00:52 07:37 CK-MB (CK-2) 3.0 3.6 (0.0-4.0) ng/mL Lipids 03/21/18 Range/Units 17:54 Triglycerides 130 (2-149) mg/dL Cholesterol 202 H (50-199) mg/dL HDL Cholesterol 51 (40-59) mg/dL Cholesterol/HDL Ratio 3.96 % CBC 03/21/18 Range/Units 17:54 WBC 8.1 (4.5-11.0) K/mm3 RBC 3.05 L (3.65-5.03) M/mm3 Hgb 9.2 L (10.1-14.3) gm/dl Hct 28.9 L (30.3-42.9) % Plt Count 175 (140-440) K/mm3 Lymph # 1.0 L (1.2-5.4) K/mm3 [place] # 0.5 (0.0-0.8) K/mm3 Eos # 0.1 (0.0-0.4) K/mm3 Baso # 0.1 (0.0-0.1) K/mm3 Comprehensive Metabolic Panel 03/21/18 Range/Units 17:54 Sodium 137 (137-145) mmol/L Potassium 4.8 (3.6-5.0) mmol/L Chloride 90.4 L (98-107) mmol/L Carbon Dioxide 21 L (22-30) mmol/L BUN 77 H (7-17) mg/dL Creatinine 9.9 H (0.7-1.2) mg/dL Glucose 130 H (65-100) mg/dL Calcium 7.3 L (8.4-10.2) mg/dL EKG interpretations - Telemetry EKG Rhythm: Sinus Rhythm Assessment and Plan 1. Acute systolic heart failure probably precipitated by fluid overload 2. End-stage renal disease 3. Essential hypertension 4. Abnormal EKG Plan. Patient will have hemodialysis for fluid management. Resume antihypertensive medication. Echocardiogram to assess global and regional function. Lexiscan to rule out underlying ischemic coronary artery disease
[2018-03-22] MEDS ORDERED: APRESOLINE IV PRN (11:56)
[2018-03-22] MEDS: cefTRIAXone 1 GM in NACL 0.9% 20 ML IV SCH (12:12)
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
[2018-03-22] MEDS ORDERED: PROCRIT IV PRN (13:43)
[2018-03-22] MEDS ORDERED: HEPARIN IV PRN (13:43)
[2018-03-22] MEDS ORDERED: NACL 0.9% 100 ML IV PRN (13:43)
[2018-03-22] MEDS ORDERED: HEPARIN 10,000 UNITS/10 ML IV PRN (13:43)
--- NOTE | 2018-03-22 14:07 | Progress Note ---
Assessment and Plan Assessment and plan: 57-year-old -Vin[place] female presented to the emergency department with complaints of chest pain and shortness of breath after she missed hemodialysis. Patient is from [facility] and visiting here, patient was admitted to the hospital on 24 and had dialysis and was seen by Dr Samuel and Karen. 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 Patient was evaluated by cardiology for CHF and patient will have echo and stress test. patient has elevated troponin level in the setting of ESRD. patient has hypertensive urgency and home medications were resumed and i also put her on clonidine IV hydralazine PRN, will monitor. DVT prohylaxis - On heparin Disposition - continue inpatient care. History Interval history: Patient was seen and evaluated this morning, patient's shortness of breath is getting a little bit better. Chest pain is getting better. Patient missed hemodialysis. Hospitalist Physical - Physical exam Narrative exam: Not in cardiopulmonary distress. The patient appeared emaciated. Vital signs as documented. Head exam is unremarkable. No scleral icterus . Neck is without jugular venous distension, thyromegaly, or carotid bruits. Lungs are clear to auscultation. Cardiac exam reveals regular rate and Rhythm. First and second heart sounds normal. No murmurs, rubs or gallops. Abdominal exam reveals normal bowel sounds, no masses, no organomegaly and no aortic enlargement. Extremities are nonedematous and both femoral and pedal pulses are normal. HARDWOOD FLOOR SANDER: Alert and oriented 3. No focal weakness. - Constitutional Vitals: Temp Pulse Resp BP Pulse Ox 97.7 F 78 18 211/106 98 03/22/18 08:36 03/22/18 09:34 03/22/18 08:36 03/22/18 09:34 03/22/18 08:36 General appearance: Present: no acute distress, well-nourished Results - Labs CBC & Chem 7: 03/21/18 17:54 03/21/18 17:54 Labs: Laboratory Last Values WBC 8.1 K/mm3 (4.5-11.0) 03/21/18 17:54 RBC 3.05 M/mm3 (3.65-5.03) L 03/21/18 17:54 Hgb 9.2 gm/dl (10.1-14.3) L 03/21/18 17:54 Hct 28.9 % (30.3-42.9) L 03/21/18 17:54 MCV 95 fl (79-97) 03/21/18 17:54 MCH 30 pg (28-32) 03/21/18 17:54 MCHC 32 % (30-34) 03/21/18 17:54 RDW 16.2 % (13.2-15.2) H 03/21/18 17:54 Plt Count 175 K/mm3 (140-440) 03/21/18 17:54 Lymph % (Auto) 12.7 % (13.4-35.0) L 03/21/18 17:54 [place] % (Auto) 6.2 % (0.0-7.3) 03/21/18 17:54 Eos % (Auto) 1.2 % (0.0-4.3) 03/21/18 17:54 Baso % (Auto) 1.1 % (0.0-1.8) 03/21/18 17:54 Lymph # 1.0 K/mm3 (1.2-5.4) L 03/21/18 17:54 [place] # 0.5 K/mm3 (0.0-0.8) 03/21/18 17:54 Eos # 0.1 K/mm3 (0.0-0.4) 03/21/18 17:54 Baso # 0.1 K/mm3 (0.0-0.1) 03/21/18 17:54 Seg Neutrophils % 78.8 % (40.0-70.0) H 03/21/18 17:54 Seg Neutrophils # 6.4 K/mm3 (1.8-7.7) 03/21/18 17:54 Sodium 137 mmol/L (137-145) 03/21/18 17:54 Potassium 4.8 mmol/L (3.6-5.0) 03/21/18 17:54 Chloride 90.4 mmol/L (98-107) L 03/21/18 17:54 Carbon Dioxide 21 mmol/L (22-30) L 03/21/18 17:54 Anion Gap 30 mmol/L 03/21/18 17:54 BUN 77 mg/dL (7-17) H 03/21/18 17:54 Creatinine 9.9 mg/dL (0.7-1.2) H 03/21/18 17:54 Estimated GFR 4 ml/min 03/21/18 17:54 BUN/Creatinine Ratio 8 % 03/21/18 17:54 Glucose 130 mg/dL (65-100) H 03/21/18 17:54 POC Glucose 88 (70-105) 03/22/18 10:05 Calcium 7.3 mg/dL (8.4-10.2) L 03/21/18 17:54 Total Creatine Kinase 120 units/L (30-135) 03/22/18 07:37 CK-MB (CK-2) 3.6 ng/mL (0.0-4.0) 03/22/18 07:37 CK-MB (CK-2) Rel Index 3.0 (0-4) 03/22/18 07:37 Troponin T 0.163 ng/mL (0.00-0.029) H* 03/22/18 07:37 Triglycerides 130 mg/dL (2-149) 03/21/18 17:54 Cholesterol 202 mg/dL (50-199) H 03/21/18 17:54 LDL Cholesterol Direct 141 mg/dL (50-130) H 03/21/18 17:54 HDL Cholesterol 51 mg/dL (40-59) 03/21/18 17:54 Cholesterol/HDL Ratio 3.96 % 03/21/18 17:54
[2018-03-22] MEDS: CATAPRES PO SCH ×2 (18:03→21:31)
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
[2018-03-22] MEDS: NORMODYNE PO SCH (21:28)
[2018-03-22] MEDS: LONITEN PO SCH (21:37)
[2018-03-23 06:27] LABS: Basophils # (Auto) 0.1 K/mm3 (0.0-0.1); Basophils % (Auto) 0.8 % (0.0-1.8); Eosinophils # (Auto) 0.1 K/mm3 (0.0-0.4); Eosinophils % (Auto) 1.2 % (0.0-4.3); Hematocrit 24.4 % (30.3-42.9); Hemoglobin 8.5 gm/dl (10.1-14.3); Lymphocytes # (Auto) 0.7 K/mm3 (1.2-5.4); Mean Corpuscular HGB Conc 35 % (30-34); Mean Corpuscular Hemoglobin 30 pg (28-32); Mean Corpuscular Volume 86 fl (79-97); Monocytes # (Auto) 0.5 K/mm3 (0.0-0.8); Monocytes % (Auto) 6.6 % (0.0-7.3); Platelet Count 156 K/mm3 (140-440); Red Blood Count 2.82 M/mm3 (3.65-5.03); Red Cell Distribution Width 15.5 % (13.2-15.2)
[2018-03-23 06:44] LABS: Calcium 7.2 mg/dL (8.4-10.2)
[2018-03-23] MEDS ORDERED: ZITHROMAX PO SCH (10:00)
--- NOTE | 2018-03-23 10:03 | Progress Note ---
Assessment and Plan ESRD - HD today Hyperkalemia - Low K bath on HD HTN - F/u on meds Subjective Date of service: 03/23/18 Objective - Vital Signs Vital signs: Vital Signs - 12hr 03/23/18 03/23/18 03/23/18 00:17 04:16 08:00 Temperature 97.7 F 97.8 F 97.9 F Pulse Rate 76 76 74 Respiratory 18 18 18 Rate Blood Pressure 171/86 177/90 Blood Pressure 154/83 [Left] O2 Sat by Pulse 96 96 99 Oximetry - General Appearance General appearance: other (No change) - Lab 03/23/18 06:03 03/23/18 06:03 Most recent lab results Calcium 7.2 mg/dL (8.4-10.2) L 03/23/18 06:03
[2018-03-23] MEDS ORDERED: LEXISCAN IV ONE ×2 (10:12→11:12)
[2018-03-23] MEDS: ASPIRIN PO SCH (10:21)
[2018-03-23] MEDS: CATAPRES PO SCH (10:21)
[2018-03-23] MEDS: cefTRIAXone 1 GM in NACL 0.9% 20 ML IV SCH (10:21)
[2018-03-23] MEDS: HEPARIN SUB-Q SCH (10:22)
[2018-03-23] MEDS: NORMODYNE PO SCH (10:22)
[2018-03-23] MEDS: LONITEN PO SCH (10:22)
[2018-03-23] MEDS: PROCARDIA XL PO SCH (10:23)
--- NOTE | 2018-03-23 14:14 | Discharge Summary ---
Providers - Providers Date of Admission: 03/21/18 22:27 Attending physician: CHAITANYA LUNA MD 03/21/18 21:19 Consult to Physician [CONS] Urgent Comment: Consulting Provider: EMILY OSPINA Physician Instructions: Reason For Exam: esrd needing dialysis 03/22/18 06:43 Consult to Physician [CONS] Routine Comment: Consulting Provider: MAGNO SANDERS Physician Instructions: Reason For Exam: ELEVATED TROPONIN WITH INTERMITTENT CHEST PAIN Primary care physician: FUR POLISHER Hospitalization Reason for admission: chest pain, missed HD, SOB Condition: Stable Pertinent studies: Cardiac stress test normal Hospital course: 57-year-old -[place] female presented to the emergency department with complaints of chest pain and shortness of breath after she missed hemodialysis. Patient is from [facility] and visiting here, patient was admitted to the hospital on 03/17 and had dialysis. Patient was evaluated by cardiology for CHF and patient will have echo and stress test. patient has elevated troponin level in the setting of ESRD. Patient had HD today and SOB and chest pain subsided. Stress test was done and was normal. Cradiology said no more work up needed. Patient wants to be discharged home and she said she has a flight to [facility] tomorrow. patient was hemodynamically stable at the time of discharge. patient' s BP medications were adjusted and discharged home in a stable condition. Disposition: -01 TO HOME OR SELFCARE Time spent for discharge: 31 minutes - Discharge Diagnoses (1) Chest pain Status: Acute Qualifiers: Chest pain type: unspecified Qualified Code(s): R07.9 - Chest pain, unspecified (2) End stage renal disease on dialysis Status: Chronic (3) Shortness of breath Status: Acute (4) Volume overload Status: Acute Qualifiers: Hypervolemia type: other Qualified Code(s): E87.79 - Other fluid overload Comment: Missed dialysis Core Measure Documentation - Palliative Care Palliative Care/ Comfort Measures: Not Applicable - Core Measures Any of the following diagnoses?: none Exam - Physical Exam Narrative exam: Not in cardiopulmonary distress. The patient appeared emaciated. Vital signs as documented. Head exam is unremarkable. No scleral icterus . Neck is without jugular venous distension, thyromegaly, or carotid bruits. Lungs are clear to auscultation. Cardiac exam reveals regular rate and Rhythm. First and second heart sounds normal. No murmurs, rubs or gallops. Abdominal exam reveals normal bowel sounds, no masses, no organomegaly and no aortic enlargement. Extremities are nonedematous and both femoral and pedal pulses are normal. TAPEMAN: Alert and oriented 3. No focal weakness. - Constitutional Vitals: Temp Pulse Resp BP Pulse Ox 97.9 F 71 18 137/74 99 03/23/18 11:50 03/23/18 12:30 03/23/18 11:50 03/23/18 12:30 03/23/18 08:00 Plan Activity: no restrictions Weight Bearing Status: Full Weight Bearing Diet: low cholesterol, low salt, renal Follow up with: NORMA WILLIS MD [Primary Care Provider] - 7 Days EMILY OSPINA MD [Staff Physician] - 7 Days
[2018-03-23 16:20] VITALS: BP 175/81
[2018-03-23] MEDS: ZOFRAN IV PRN (16:35)
--- NOTE | 2018-03-24 22:56 | Treadmill Report ---
THALLIUM STRESS TEST LEFT VENTRICLE: Left ventricular chamber size is within normal. Perfusion study demonstrates homogeneous uptake of the tracer in all segments, no significant perfusion defects identified. Gated analysis suggests mild left ventricular systolic dysfunction with ejection fraction calculated at 44%. CONCLUSION: Normal myocardial perfusion, recommend clinical correlation, and echocardiographic reassessment of left ventricular systolic function. JOB# [id number] CA/NTS
== END 2018-03-23 19:30 | disposition home or self-care (01) | DRG 291 ==
LOC: ED 17:31 → 4A 22:27
PROVIDERS: ADMIT Internal Medicine; ATTEND Internal Medicine
PROC: 5A1D70Z Performance of Urinary Filtration, Intermittent, Less than 6 Hours Per Day (ICD-10-PCS; principal; 2018-03-21)
DX: I13.2 Hypertensive heart and chronic kidney disease with heart failure and with stage 5 chronic kidney disease, or end stage renal disease (principal); N18.6 End stage renal disease; I50.21 Acute systolic (congestive) heart failure; J44.9 Chronic obstructive pulmonary disease, unspecified; K21.9 Gastro-esophageal reflux disease without esophagitis; E87.5 Hyperkalemia; Z99.2 Dependence on renal dialysis; Z86.73 Personal history of transient ischemic attack (TIA), and cerebral infarction without residual deficits; Z88.8 Allergy status to other drugs, medicaments and biological substances
CPT/HCPCS: 36415; 71046; 78452; 80048; 80061; 82550; 82553; 82962; 84484; 85025; 93005; 93010; 93017; 96374; A9502; J0360; J0456; J0696; J1644; J2270; J2405; J2785; J7050